=== PATIENT | male | born 1955 | race Caucasian/White ===

== ENCOUNTER → 2017-03-25 | Outpatient (CLI) | payer OTHER ==
[~2017-03-25] MED LIST: ALLP300T PO; CETI10TA17 PO; DABI150C5 PO; ESCT10T; FLT05NA16; FLUT16SP22 NSEACH; FURO40TA4; METO-274 PO; MTF500T PO; MTP100TCR PO; NFNEB10T PO; ROSU10TA12 PO; SITA100T12 PO; TELM1TAB PO; TELM80TA3 PO
--- NOTE | 2017-03-25 12:11 | Diagnostic Imaging Report ---
EXAMINATION: Upper and lower extremity pressure measurements of ankle/brachial index and pulse volume recording at the ankle. INDICATION: Claudication FINDINGS: The ankle/brachial index on the right side is 1.3, (1.3 PT, and 1.1 DP) and on the left is 1.2 (1.2 PT, and 1.2 DP). Pulse volume recording waveforms dampened amplitude with the PVRs at the ankles bilaterally. IMPRESSION: Normal JOELLEN measurements, bilaterally with moderate dampening of the PVR's waveforms. Calcified vessels could exaggerate the ankle pressures. Dictated by: Dictated on workstation # [id number]
== END ==
LOC: RAD 11:15
PROVIDERS: ATTEND Internal Medicine
DX: I73.9 Peripheral vascular disease, unspecified (principal)
CPT/HCPCS: 93922

== ENCOUNTER → 2017-05-21 | Outpatient (CLI) | payer OTHER ==
[~2017-05-21] MED LIST changes: -METO-274 PO; +METO-395 PO
== END ==
LOC: CARD 13:20
PROVIDERS: ATTEND Physician Assistant
DX: E13.9 Other specified diabetes mellitus without complications (principal); I10 Essential (primary) hypertension; E78.2 Mixed hyperlipidemia; I48.1 Persistent atrial fibrillation
CPT/HCPCS: 93306

== ENCOUNTER 2018-09-09 05:40 | Inpatient (IN) | payer SELFPAY ==
[~2018-09-09] VITALS: Ht 193 cm; Wt 137.1 kg
[2018-09-09] VITALS (15 sets, daily range): BP systolic 80–123; BP diastolic 59–99
[~2018-09-09 05:40] MED LIST changes: +ALLO300T2 PO; +DILT240C86 PO; +ESCI20TA45 PO; +FOLI1TAB24 PO; +GABA-488 PO; +METF-397 PO; +METO200T48 PO; +ROSU10TA27 PO; +THIA100T12 PO
[2018-09-09 06:21] LABS: BASOPHILS % (AUTO) 0 % (0-10); EOSINOPHILS # (AUTO) 0.1 10^3/uL (0.0-0.3); EOSINOPHILS % (AUTO) 2 % (0-10); HEMATOCRIT 42 % (40-54); LYMPHOCYTES # (AUTO) 1.5 X 10^3 (1.0-4.0); LYMPHOCYTES % (AUTO) 20 % (12-44); MEAN CORPUSCULAR HEMOGLOBIN 33 PG (25-34); MEAN CORPUSCULAR HGB CONC 33 G/DL (32-36); MEAN CORPUSCULAR VOLUME 100 FL (80-99); MEAN PLATELET VOLUME 10.4 FL (7.4-10.4); MONOCYTES % (AUTO) 13 % (0-12); NEUTROPHILS % (AUTO) 65 % (42-75); PLATELET COUNT 170 10^3/uL (130-400); RED CELL DISTRIBUTION WIDTH 14.5 % (10.0-14.5); WHITE BLOOD COUNT 7.6 10^3/uL (4.3-11.0)
[2018-09-09 06:30] LABS: BACTERIA,URINE TRACE /HPF; BILIRUBIN,URINE NEGATIVE (NEGATIVE); CLARITY,URINE CLEAR; COLOR,URINE YELLOW; GLUCOSE, URINE (UA) NEGATIVE (NEGATIVE); KETONES,URINE NEGATIVE (NEGATIVE); LEUKOCYTE ESTERASE ,URINE 1+ (NEGATIVE); NITRITE,URINE NEGATIVE (NEGATIVE); PH,URINE 5 (5-9); PROTEIN,URINE 2+ (NEGATIVE); RBC,URINE RARE /HPF; SQUAMOUS EPITHELIAL CELL,UR RARE /HPF; UROBILINOGEN,URINE 1 MG/DL (NORMAL); WBC,URINE RARE /HPF
[2018-09-09 06:42] LABS: ALANINE AMINOTRANSFERASE 17 U/L (0-55); ALBUMIN 3.6 GM/DL (3.2-4.5); ALKALINE PHOSPHATASE 150 U/L (40-136); BUN/CREATININE RATIO 14; CALCIUM 9.3 MG/DL (8.5-10.1); CARBON DIOXIDE 19 MMOL/L (21-32); CHLORIDE 107 MMOL/L (98-107); CREATININE SERUM 0.72 MG/DL (0.60-1.30); GFR ESTIMATED > 60; GLUCOSE 135 MG/DL (70-105); POTASSIUM 4.4 MMOL/L (3.6-5.0); SODIUM 138 MMOL/L (135-145); TOTAL PROTEIN 6.7 GM/DL (6.4-8.2)
--- NOTE | 2018-09-09 06:53 | ED General ---
General Chief Complaint: Respiratory Problems Stated Complaint: FEET,LEGS & SCROTUM SWOLLEN,SOB,DIABETES Nursing Triage Note: EDEMA, SOA. Nursing Sepsis Screen: No Definite Risk Source of Information: Patient Exam Limitations: No Limitations History of Present Illness Date Seen by Provider: Sep 09, 2018 Time Seen by Provider: 06:40 Initial Comments The patient is a 63-year-old white male who appears at the insistence of his . He states that he has gained 60 or 65 pounds over the recent weeks. He is very short of breath. His belly has gotten much larger and his legs have swollen terribly. He also reports that his penis and scrotum have become greatly swollen. He has had atrial fibrillation for 10 years or more. He states that he had a coronary angiogram about 5 [address] Campos at this institution. He has no previous history of a heart attack. He only gave in to his because he was no longer able to get up and walk because of the swelling. He also apparently has not taken his medicines for 6 weeks or more because he was unable to afford them. Allergies and Home Medications Allergies Coded Allergies: Devaughn Known Allergies (Verified Allergy, Unknown, 07/17/06) Home Medications Allopurinol 300 Mg Tablet, 300 MG PO DAILY, (Reported) Cetirizine HCl 10 Mg Tablet, 10 MG PO DAILY, (Reported) Dabigatran Etexilate Mesylate 150 Mg Capsule, 150 MG PO 0900,1200, (Reported) Diltiazem HCl 240 Mg Cap.er.24h, 240 MG PO DAILY, (Reported) Escitalopram Oxalate 20 Mg Tablet, 20 MG PO HS, (Reported) Folic Acid 1 Mg Tablet, 1 MG PO DAILY Prescribed by: DENNIS CAMPOS on 10/13/17837 Gabapentin 300 Mg Capsule, 300 MG PO HS, (Reported) Metformin HCl 500 Mg Tablet, 1,000 MG PO 0900,1200, (Reported) Metoprolol Succinate 200 Mg Tab.er.24h, 200 MG PO DAILY, (Reported) Rosuvastatin Calcium 10 Mg Tablet, 10 MG PO HS, (Reported) Sitagliptin Phosphate 100 Mg Tablet, 100 MG PO DAILY, (Reported) Telmisartan/Hydrochlorothiazid 1 Each Tablet, 1 TAB PO DAILY, (Reported) Thiamine HCl 100 Mg Tablet, 100 MG PO DAILY Prescribed by: DENNIS CAMPOS on 10/13/17837 Patient Home Medication List Home Medication List Reviewed: Yes Review of Systems Review of Systems Constitutional: see HPI Respiratory: dyspnea on exertion, orthopnea, short of breath Cardiovascular: no symptoms reported Gastrointestinal: other (the belly has become very tight and he has which were not present before) Musculoskeletal: muscle weakness Skin: other (feet have become very swollen and flaky) Psychiatric/Neurological: No Symptoms Reported Hematologic/Lymphatic: No Symptoms Reported Immunological/Allergic: no symptoms reported Past Qgflltu-[id number]-[id number] Hx Patient Social History Alcohol Use: Regular Use Number of Drinks Today: GG Alcohol Beverage of Choice: Whiskey Recreational Drug Use: No Smoking Status: Current Everyday Smoker Type Used: Cigarettes 2nd Hand Smoke Exposure: Yes Recent Foreign Travel: No Contact w/Someone Who Travel: No Recent Infectious Disease Expo: No Recent Hopitalizations: No Immunizations Up To Date Tetanus Booster (TDap): Unknown Seasonal Allergies Seasonal Allergies: No Past Medical History Surgeries: Yes Orthopedic Respiratory: Yes Sleep Apnea Cardiac: Yes Atrial Fibrillation, High Cholesterol, Hypertension Neurological: Yes Neuropathy Genitourinary: No Gastrointestinal: No Musculoskeletal: Yes Arthritis Endocrine: Yes Diabetes, Non-Insulin dep HEENT: Yes Hearing Impairment: Hard of Hearing Cancer: No Psychosocial: Yes Anxiety, Depression Integumentary: No Blood Disorders: No Physical Exam Vital Signs Vital Signs - First Documented 09/09/18 05:50 Temp 96.9 Pulse 136 Resp 22 B/P (MAP) 126/91 (103) Pulse Ox 98 O2 Delivery Room Air Capillary Refill : Less Than 3 Seconds Height, Weight, BMI Height: 6'4.00" Weight: 340lbs. 0oz. [id number]; 33.7 BMI Method:Stated General Appearance: Moderate Distress Eyes: Bilateral Eye Normal Inspection HEENT: Normal ENT Inspection Neck: Normal Inspection Respiratory: Other (barreled chest and distant breath sounds) Cardiovascular: Irregularly Irregular, Tachycardia Gastrointestinal: Other (the abdomen is very large and protuberant. There are new stria in the right mid abdomen. There is a fluid wave) Neurologic/Psychiatric: Alert, Oriented x3 Comments The extremities are very swollen and firm well up into the thighs. The penis and scrotum are also very edematous. It is also noted that he has multiple small holes in his T-shirt and pants consistent with tobacco YUSEF Progress/Results/Core Measures Suspected Sepsis Recent Fever Within 48 Hours: No Infection Criteria Present: None New/Unexplained Altered Menta: No Sepsis Screen: No Definite Risk SIRS Temperature:96.9 Pulse: 136 Respiratory Rate: 22 Laboratory Tests 09/09/18 06:05: White Blood Count 7.6 Blood Pressure 126 /91 Mean: 103 Laboratory Tests 09/09/18 06:05: Creatinine 0.72, Platelet Count 170, Total Bilirubin 1.0 Results/Orders Lab Results Laboratory Tests Test 09/09/18 06:00 09/09/18 06:05 Range/Units Urine Color YELLOW Urine Clarity CLEAR Urine pH 5 5-9 Urine Specific [place] 1.020 1.016-1.022 Urine Protein 2+ H NEGATIVE Urine Glucose (UA) NEGATIVE NEGATIVE Urine Ketones NEGATIVE NEGATIVE Urine Nitrite NEGATIVE NEGATIVE Urine Bilirubin NEGATIVE NEGATIVE Urine Urobilinogen 1 NORMAL MG/DL Urine Leukocyte Esterase 1+ H NEGATIVE Urine RBC (Auto) NEGATIVE NEGATIVE Urine RBC RARE /HPF Urine WBC RARE /HPF Urine Squamous Epithelial Cells RARE /HPF Urine Crystals NONE /LPF Urine Bacteria TRACE /HPF Urine Casts NONE /LPF Urine Mucus NEGATIVE /LPF Urine Culture Indicated NO White Blood Count 7.6 4.3-11.0 10^3/uL Red Blood Count 4.19 L 4.35-5.85 10^6/uL Hemoglobin 14.0 13.3-17.7 G/DL Hematocrit 42 40-54 % Mean Corpuscular Volume 100 H 80-99 FL Mean Corpuscular Hemoglobin 33 25-34 PG Mean Corpuscular Hemoglobin Concent 33 32-36 G/DL Red Cell Distribution Width 14.5 10.0-14.5 % Platelet Count 170 130-400 10^3/uL Mean Platelet Volume 10.4 7.4-10.4 FL Neutrophils (%) (Auto) 65 42-75 % Lymphocytes (%) (Auto) 20 12-44 % Monocytes (%) (Auto) 13 H 0-12 % Eosinophils (%) (Auto) 2 0-10 % Basophils (%) (Auto) 0 0-10 % Neutrophils # (Auto) 5.0 1.8-7.8 X 10^3 Lymphocytes # (Auto) 1.5 1.0-4.0 X 10^3 Monocytes # (Auto) 1.0 0.0-1.0 X 10^3 Eosinophils # (Auto) 0.1 0.0-0.3 10^3/uL Basophils # (Auto) 0.0 0.0-0.1 10^3/uL Sodium Level 138 135-145 MMOL/L Potassium Level 4.4 3.6-5.0 MMOL/L Chloride Level 107 98-107 MMOL/L Carbon Dioxide Level 19 L 21-32 MMOL/L Anion Gap 12 5-14 MMOL/L Blood Urea Nitrogen 10 7-18 MG/DL Creatinine 0.72 0.60-1.30 MG/DL Estimat Glomerular Filtration Rate > 60 BUN/Creatinine Ratio 14 Glucose Level 135 H 70-105 MG/DL Calcium Level 9.3 8.5-10.1 MG/DL Corrected Calcium 9.6 8.5-10.1 MG/DL Total Bilirubin 1.0 0.1-1.0 MG/DL Aspartate Amino Transf (AST/SGOT) 23 5-34 U/L Alanine Aminotransferase (ALT/SGPT) 17 0-55 U/L Alkaline Phosphatase 150 H 40-136 U/L B-Type Natriuretic Peptide 162.9 H <100.0 PG/ML Total Protein 6.7 6.4-8.2 GM/DL Albumin 3.6 3.2-4.5 GM/DL My Orders Orders - JEEVAN MARTIN MD Ekg Tracing (09/09/18 06:21) Chest 1 View, Ap/Pa Only (09/09/18 06:42) Vital Signs/I&O 09/09/18 05:50 Temp 96.9 Pulse 136 Resp 22 B/P (MAP) 126/91 (103) Pulse Ox 98 O2 Delivery Room Air Capillary Refill : Less Than 3 Seconds Blood Pressure Mean: 103 Departure Communication (Admissions) Interestingly his CMP is basically normal including the liver enzymes and blood sugar. His BNP is surprisingly low. Chest x-ray shows no evidence of congestive heart failure. Albumin was noted to be 3.5. Impression Primary Impression: Anasarca Additional Impression: atrial fibrillation with rapid ventricular response Disposition: ADMITTED INPATIENT Condition: Stable/Unchanged Admissions Decision to Admit Reason: Admit from ER (General) Time/Decision to Admit Time: 08:32 Departure-Patient Inst. Referrals: NO,LOCAL PHYSICIAN (PCP/Family) Primary Care Physician JEEVAN MARTIN MD Sep 09, 2018 06:53
--- NOTE | 2018-09-09 07:16 | Diagnostic Imaging Report ---
INDICATION: Shortness of air. Cough. COMPARISON: 12/05/2015 FINDINGS: Single frontal radiographic view of the chest was obtained and demonstrates persistent marked cardiomegaly. Pulmonary vasculature however is within normal limits. Lungs are clear. There is no focal consolidation, large effusion, nor pneumothorax. Bony structures show no gross acute abnormalities. IMPRESSION: 1. Stable cardiomegaly, but no evidence of failure or focal infiltrate. Dictated by: Dictated on workstation # [id number]
--- OUTSIDE RECORDS SUMMARY | 2018-09-09 07:55 | XMS REPORT | Continuity of Care Document ---
Author Author [facility] Organization [facility] Address Unknown Phone Unavailable Allergies Active Description Code Type Severity Reaction Onset Reported/Identified Relationship to Patient Clinical Status Yes NKANo Known Allergies NKA Miscellaneous Allergy Unknown N/A 07/17/2006 Medications There is no data. Problems Date Dx Coded Attending Type Code Diagnosis Diagnosed By 11/27/2011 Ot 427.31 ATRIAL FIBRILLATION 11/27/2011 Ot 786.05 SHORTNESS OF BREATH 11/12/2014 Ot 429.3 11/12/2014 Ot 729.1 11/12/2014 Ot 780.64 11/12/2014 Ot 786.50 11/12/2014 RAFI DEL REAL APRN Ot 786.2 11/12/2014 Ot 429.3 11/12/2014 Ot 729.1 11/12/2014 Ot 780.64 11/12/2014 Ot 786.50 11/12/2014 RAFI DEL REAL APRN Ot 786.2 10/22/2015 Ot 429.3 CARDIOMEGALY 10/22/2015 Ot 729.1 MYALGIA AND MYOSITIS NOS 10/22/2015 Ot 780.64 CHILLS ( WITHOUT FEVER) 10/22/2015 Ot 786.50 CHEST PAIN NOS 10/22/2015 RAFI DEL REAL APRN Ot 786.2 COUGH 10/25/2015 OCTAVIANO CATES MD Ot R06.00 DYSPNEA, UNSPECIFIED 10/25/2015 OCTAVIANO CATES MD Ot Z72.0 TOBACCO USE 11/07/2015 DENNIS OLIVERA MD Ot E11.9 TYPE 2 DIABETES MELLITUS WITHOUT COMPLIC 11/07/2015 DENNIS OLIVERA MD Ot E78.2 MIXED HYPERLIPIDEMIA 11/07/2015 DENNIS OLIVERA MD Ot I10 ESSENTIAL (PRIMARY) HYPERTENSION 11/07/2015 DENNIS OLIVERA MD Ot I48.1 PERSISTENT ATRIAL FIBRILLATION 11/07/2015 DENNIS OLIVERA MD Ot Z72.0 TOBACCO USE 11/08/2015 JAROD MD, BASHAR J Ot E11.9 TYPE 2 DIABETES MELLITUS WITHOUT COMPLIC 11/08/2015 DENNIS OLIVERA MD Ot E78.2 MIXED HYPERLIPIDEMIA 11/08/2015 DENNIS OLIVERA MD Ot I10 ESSENTIAL (PRIMARY) HYPERTENSION 11/08/2015 DENNIS OLIVERA MD Ot I48.1 PERSISTENT ATRIAL FIBRILLATION 11/08/2015 DENNIS OLIVERA MD Ot Z72.0 TOBACCO USE 11/09/2015 DENNIS OLIVERA MD Ot E11.9 TYPE 2 DIABETES MELLITUS WITHOUT COMPLIC 11/09/2015 DENNIS OLIVERA MD Ot E78.2 MIXED HYPERLIPIDEMIA 11/09/2015 DENNIS OLIVERA MD J Ot I10 ESSENTIAL (PRIMARY) HYPERTENSION 11/09/2015 DENNIS OLIVERA MD Ot I48.1 PERSISTENT ATRIAL FIBRILLATION 11/09/2015 DENNIS OLIVERA MD Ot Z72.0 TOBACCO USE 11/09/2015 DENNIS OLIVERA MD Ot E11.9 TYPE 2 DIABETES MELLITUS WITHOUT COMPLIC 11/09/2015 DENNIS OLIVERA MD Ot E78.2 MIXED HYPERLIPIDEMIA 11/09/2015 DENNIS OLIVERA MD Ot I10 ESSENTIAL (PRIMARY) HYPERTENSION 11/09/2015 DENNIS OLIVERA MD Ot I48.1 PERSISTENT ATRIAL FIBRILLATION 11/09/2015 DENNIS OLIVERA MD Ot Z72.0 TOBACCO USE 11/12/2015 DARRYN BUCHANAN, OCTAVIANO Barker Ot R06.00 DYSPNEA, UNSPECIFIED 11/12/2015 OCTAVIANO CATES MD Ot Z72.0 TOBACCO USE 11/22/2015 DENNIS OLIVERA MD Ot E11.9 TYPE 2 DIABETES MELLITUS WITHOUT COMPLIC 11/22/2015 DENNIS OLIVERA MD Ot E78.2 MIXED HYPERLIPIDEMIA 11/22/2015 DENNIS OLIVERA MD Ot I10 ESSENTIAL (PRIMARY) HYPERTENSION 11/22/2015 DENNIS OLIVERA MD Ot I48.1 PERSISTENT ATRIAL FIBRILLATION 11/22/2015 DENNIS OLIVERA MD Ot Z72.0 TOBACCO USE 11/22/2015 DENNIS OLIVERA MD Ot E11.9 TYPE 2 DIABETES MELLITUS WITHOUT COMPLIC 11/22/2015 DENNIS OLIVERA MD Ot E78.2 MIXED HYPERLIPIDEMIA 11/22/2015 DENNIS OLIVERA MD Ot I10 ESSENTIAL (PRIMARY) HYPERTENSION 11/22/2015 DENNIS OLIVERA MD Ot I48.1 PERSISTENT ATRIAL FIBRILLATION 11/22/2015 DENNIS OLIVERA MD Ot Z72.0 TOBACCO USE 12/05/2015 DENNIS OLIVERA MD Ot E11.9 TYPE 2 DIABETES MELLITUS WITHOUT COMPLIC 12/05/2015 DENNIS OLIVERA MD Ot E66.9 OBESITY, UNSPECIFIED 12/05/2015 DENNIS OLIVERA MD Ot E78.5 HYPERLIPIDEMIA, UNSPECIFIED 12/05/2015 DENNIS OLIVERA MD Ot G47.33 OBSTRUCTIVE SLEEP APNEA (ADULT) (PEDIATR 12/05/2015 DENNIS OLIVERA MD Ot I10 ESSENTIAL (PRIMARY) HYPERTENSION 12/05/2015 DENNIS OLIVERA MD Ot I25.10 ATHSCL HEART DISEASE OF [place] CORONARY 12/05/2015 DENNIS OLIVERA MD Ot I48.0 PAROXYSMAL ATRIAL FIBRILLATION 12/05/2015 DENNIS OLIVERA MD Ot M10.9 GOUT, UNSPECIFIED 12/05/2015 DENNIS OLIVERA MD Ot Z68.36 BODY MASS INDEX (BMI) 36.0-36.9, ADULT 12/05/2015 DENNIS OLIVERA MD Ot Z72.0 TOBACCO USE 12/05/2015 DENNIS OLIVERA MD Ot Z79.899 OTHER RETIREMENT (CURRENT) DRUG THERAPY 01/03/2016 DENNIS OLIVERA MD Ot E11.9 TYPE 2 DIABETES MELLITUS WITHOUT COMPLIC 01/03/2016 DENNIS OLIVERA MD Ot E66.9 OBESITY, UNSPECIFIED 01/03/2016 DENNIS OLIVERA MD Ot E78.5 HYPERLIPIDEMIA, UNSPECIFIED 01/03/2016 DENNIS OLIVERA MD Ot G47.33 OBSTRUCTIVE SLEEP APNEA (ADULT) (PEDIATR 01/03/2016 DENNIS OLIVERA MD Ot I10 ESSENTIAL (PRIMARY) HYPERTENSION 01/03/2016 DENNIS OLIVERA MD Ot I25.10 ATHSCL HEART DISEASE OF [place] CORONARY 01/03/2016 DENNIS OLIVERA MD Ot I48.0 PAROXYSMAL ATRIAL FIBRILLATION 01/03/2016 DENNIS OLIVERA MD Ot M10.9 GOUT, UNSPECIFIED 01/03/2016 DENNIS OLIVERA MD Ot Z68.36 BODY MASS INDEX (BMI) 36.0-36.9, ADULT 01/03/2016 DENNIS OLIVERA MD Ot Z72.0 TOBACCO USE 01/03/2016 DENNIS OLIVERA MD Ot Z79.899 OTHER RETIREMENT (CURRENT) DRUG THERAPY 03/19/2017 OCTAVIANO CATES MD Ot R06.00 DYSPNEA, UNSPECIFIED 03/19/2017 OCTAVIANO CATES MD Ot Z72.0 TOBACCO USE 03/19/2017 DENNIS OLIVERA MD Ot E11.9 TYPE 2 DIABETES MELLITUS WITHOUT COMPLIC 03/19/2017 DENNIS OLIVERA MD Ot E78.2 MIXED HYPERLIPIDEMIA 03/19/2017 DENNIS OLIVERA MD Ot I10 ESSENTIAL (PRIMARY) HYPERTENSION 03/19/2017 DENNIS OLIVERA MD Ot I48.1 PERSISTENT ATRIAL FIBRILLATION 03/19/2017 DENNIS OLIVERA MD Ot Z72.0 TOBACCO USE 03/19/2017 DENNIS OLIVERA MD Ot E11.9 TYPE 2 DIABETES MELLITUS WITHOUT COMPLIC 03/19/2017 DENNIS OLIVERA MD Ot E78.2 MIXED HYPERLIPIDEMIA 03/19/2017 DENNIS OLIVERA MD Ot I10 ESSENTIAL (PRIMARY) HYPERTENSION 03/19/2017 DENNIS OLIVERA MD Ot I48.1 PERSISTENT ATRIAL FIBRILLATION 03/19/2017 DENNIS OLIVERA MD Ot Z72.0 TOBACCO USE 03/26/2017 OCTAVIANO CATES MD Ot I73.9 PERIPHERAL VASCULAR DISEASE, UNSPECIFIED 04/08/2017 OCTAVIANO CATES MD Ot I73.9 PERIPHERAL VASCULAR DISEASE, UNSPECIFIED 06/04/2017 MASSIEL HWANG Ot E13.9 OTHER SPECIFIED DIABETES MELLITUS WITHOU 06/04/2017 MASSIEL HWANG Ot E78.2 MIXED HYPERLIPIDEMIA 06/04/2017 MASSIEL WHANG Ot I10 ESSENTIAL (PRIMARY) HYPERTENSION 06/04/2017 MASSIEL HWANG Ot I48.1 PERSISTENT ATRIAL FIBRILLATION 10/12/2017 OCTAVIANO CATES MD Ot I73.9 PERIPHERAL VASCULAR DISEASE, UNSPECIFIED 10/12/2017 MASISEL HWANG Ot E13.9 OTHER SPECIFIED DIABETES MELLITUS WITHOU 10/12/2017 MASSIEL HWANG Ot E78.2 MIXED HYPERLIPIDEMIA 10/12/2017 MASSIEL HWANG Ot I10 ESSENTIAL (PRIMARY) HYPERTENSION 10/12/2017 MASSIEL HWANG Ot I48.1 PERSISTENT ATRIAL FIBRILLATION 10/13/2017 DENNIS OLIVERA MD Ot E11.9 TYPE 2 DIABETES MELLITUS WITHOUT COMPLIC 10/13/2017 DENNIS OLIVERA MD Ot E66.9 OBESITY, UNSPECIFIED 10/13/2017 DENNIS OLIVERA MD Ot E78.2 MIXED HYPERLIPIDEMIA 10/13/2017 DENNIS OLIVERA MD Ot E78.5 HYPERLIPIDEMIA, UNSPECIFIED 10/13/2017 DENNIS OLIVERA MD Ot F10.20 ALCOHOL DEPENDENCE, UNCOMPLICATED 10/13/2017 DENNIS OLIVERA MD Ot G47.33 OBSTRUCTIVE SLEEP APNEA (ADULT) (PEDIATR 10/13/2017 DENNIS OLIVERA MD Ot G62.9 POLYNEUROPATHY, UNSPECIFIED 10/13/2017 DENNIS OLIVERA MD Ot I10 ESSENTIAL (PRIMARY) HYPERTENSION 10/13/2017 DENNIS OLIVERA MD Ot I25.10 ATHSCL HEART DISEASE OF [place] CORONARY 10/13/2017 DENNIS OLIVERA MD Ot I45.10 UNSPECIFIED RIGHT BUNDLE-BRANCH BLOCK 10/13/2017 DENNIS OLIVERA MD, Ot I48.1 PERSISTENT ATRIAL FIBRILLATION 10/13/2017 DENNIS OLIVERA MD Ot I49.3 VENTRICULAR PREMATURE DEPOLARIZATION 10/13/2017 DENNIS OLIVERA MD, Ot I65.23 OCCLUSION AND STENOSIS OF [place] 10/13/2017 DENNIS OLIVERA MD Ot M10.9 GOUT, UNSPECIFIED 10/13/2017 DENNIS OLIVERA MD Ot Z68.33 BODY MASS INDEX (BMI) 33.0-33.9, ADULT 10/13/2017 DENNIS OLIVERA MD Ot Z79.84 CLASSER (CURRENT) USE OF ORAL HYPOGLYC 10/13/2017 DENNIS OLIVERA MD Ot Z91.19 PATIENT'S NONCOMPLIANCE W OT MEDICAL TR 10/13/2017 DENNIS OLIVERA MD Ot E11.9 TYPE 2 DIABETES MELLITUS WITHOUT COMPLIC 10/13/2017 DENNIS OLIVERA MD Ot E66.9 OBESITY, UNSPECIFIED 10/13/2017 DENNIS OLIVERA MD Ot E78.2 MIXED HYPERLIPIDEMIA 10/13/2017 DENNIS OLIVERA MD Ot E78.5 HYPERLIPIDEMIA, UNSPECIFIED 10/13/2017 DENNIS OLIVERA MD, Ot F10.20 ALCOHOL DEPENDENCE, UNCOMPLICATED 10/13/2017 DENNIS OLIVERA MD, Ot G47.33 OBSTRUCTIVE SLEEP APNEA (ADULT) (PEDIATR 10/13/2017 DENNIS OLIVERA MD, Ot G62.9 POLYNEUROPATHY, UNSPECIFIED 10/13/2017 DENNIS OLIVERA MD Ot I10 ESSENTIAL (PRIMARY) HYPERTENSION 10/13/2017 DENNIS OLIVERA MD, Ot I25.10 ATHSCL HEART DISEASE OF [place] CORONARY 10/13/2017 DENNIS OLIVERA MD, Ot I45.10 UNSPECIFIED RIGHT BUNDLE-BRANCH BLOCK 10/13/2017 DENNIS OLIVERA MD, Ot I48.1 PERSISTENT ATRIAL FIBRILLATION 10/13/2017 DENNIS OLIVERA MD, Ot I49.3 VENTRICULAR PREMATURE DEPOLARIZATION 10/13/2017 DENNIS OLIVERA MD, Ot I65.23 OCCLUSION AND STENOSIS OF [place] 10/13/2017 DENNIS OLIVERA MD, Ot M10.9 GOUT, UNSPECIFIED 10/13/2017 DENNIS OLIVERA MD, Ot Z68.33 BODY MASS INDEX (BMI) 33.0-33.9, ADULT 10/13/2017 DENNIS OLIVERA MD, Ot Z79.84 CLASSER (CURRENT) USE OF ORAL HYPOGLYC 10/13/2017 DENNIS OLIVERA MD, Ot Z91.19 PATIENT'S NONCOMPLIANCE W [facility] MEDICAL TR Procedures There is no data. Results Test Result Range Automated blood complete blood count (hemogram) panel - 10/12/17 16:50 Blood leukocytes automated count (number/volume) 5.7 10*3/uL 4.3-11.0 Blood erythrocytes automated count (number/volume) 3.96 10*6/uL 4.35-5.85 Venous blood hemoglobin measurement (mass/volume) 14.1 g/dL 13.3-17.7 Blood hematocrit (volume fraction) 40 % 40-54 Automated erythrocyte mean corpuscular volume 100 [foz_us] 80-99 Automated erythrocyte mean corpuscular hemoglobin (mass per erythrocyte) 36 pg 25-34 Automated erythrocyte mean corpuscular hemoglobin concentration measurement ( mass/volume) 36 g/dL 32-36 Automated erythrocyte distribution width ratio 13.8 % 10.0-14.5 Automated blood platelet count (count/volume) 106 10*3/uL 130-400 Automated blood platelet mean volume measurement 9.8 [foz_us] 7.4-10.4 PT panel in platelet poor plasma by coagulation assay - 10/12/17 16:50 Prothrombin time (PT) in platelet poor plasma by coagulation assay 14.7 s 12.2-14.7 INR in platelet poor plasma or blood by coagulation assay 1.1 0.8-1.4 Activated partial thromboplastin time (aPTT) in platelet poor plasma bycoagulation assay - 10/12/17 16:50 Activated partial thromboplastin time (aPTT) in platelet poor plasma bycoagulation assay 28 s 24-35 Comprehensive metabolic panel - 10/12/17 16:50 Serum or plasma sodium measurement (moles/volume) 139 mmol/L 135-145 Serum or plasma potassium measurement (moles/volume) 3.8 mmol/L 3.6-5.0 Serum or plasma chloride measurement (moles/volume) 106 mmol/L 98-107 Carbon dioxide 22 mmol/L 21-32 Serum or plasma anion gap determination (moles/volume) 11 mmol/L 5-14 Serum or plasma urea nitrogen measurement (mass/volume) 14 mg/dL 7-18 Serum or plasma creatinine measurement (mass/volume) 0.69 mg/dL 0.60-1.30 Serum or plasma urea nitrogen/creatinine mass ratio 20 NRG Serum or plasma creatinine measurement with calculation of estimated glomerular filtration rate > NRG Serum or plasma glucose measurement (mass/volume) 123 mg/dL 70-105 Serum or plasma calcium measurement (mass/volume) 9.0 mg/dL 8.5-10.1 Serum or plasma total bilirubin measurement (mass/volume) 1.0 mg/dL 0.1-1.0 Serum or plasma alkaline phosphatase measurement (enzymatic activity/volume) 73 U/L 40-136 Serum or plasma aspartate aminotransferase measurement (enzymatic activity/ volume) 46 U/L 5-34 Serum or plasma alanine aminotransferase measurement (enzymatic activity/volume ) 60 U/L 0-55 Serum or plasma protein measurement (mass/volume) 6.3 g/dL 6.4-8.2 Serum or plasma albumin measurement (mass/volume) 3.9 g/dL 3.2-4.5 Serum or plasma lithium measurement (moles/volume) - 10/12/17 16:50 BNP level 193.0 pg/mL <100.0 Serum or plasma troponin i.cardiac measurement (mass/volume) - 10/12/17 16:50 Serum or plasma troponin i.cardiac measurement (mass/volume) < ng/ mL <0.30 THYROID STIMULATING HORMONE - 10/12/17 16:50 THYROID STIMULATING HORMONE 2.52 u[iU]/mL 0.35-4.94 Automated blood complete blood count (hemogram) panel - 10/13/17 03:15 Blood leukocytes automated count (number/volume) 5.5 10*3/uL 4.3-11.0 Blood erythrocytes automated count (number/volume) 3.76 10*6/uL 4.35-5.85 Venous blood hemoglobin measurement (mass/volume) 13.5 g/dL 13.3-17.7 Blood hematocrit (volume fraction) 39 % 40-54 Automated erythrocyte mean corpuscular volume 102 [foz_us] 80-99 Automated erythrocyte mean corpuscular hemoglobin (mass per erythrocyte) 36 pg 25-34 Automated erythrocyte mean corpuscular hemoglobin concentration measurement ( mass/volume) 35 g/dL 32-36 Automated erythrocyte distribution width ratio 14.2 % 10.0-14.5 Automated blood platelet count (count/volume) 105 10*3/uL 130-400 Automated blood platelet mean volume measurement 9.7 [foz_us] 7.4-10.4 Comprehensive metabolic panel - 10/13/17 03:15 Serum or plasma sodium measurement (moles/volume) 139 mmol/L 135-145 Serum or plasma potassium measurement (moles/volume) 3.7 mmol/L 3.6-5.0 Serum or plasma chloride measurement (moles/volume) 106 mmol/L 98-107 Carbon dioxide 22 mmol/L 21-32 Serum or plasma anion gap determination (moles/volume) 11 mmol/L 5-14 Serum or plasma urea nitrogen measurement (mass/volume) 15 mg/dL 7-18 Serum or plasma creatinine measurement (mass/volume) 0.66 mg/dL 0.60-1.30 Serum or plasma urea nitrogen/creatinine mass ratio 23 NRG Serum or plasma creatinine measurement with calculation of estimated glomerular filtration rate > NRG Serum or plasma glucose measurement (mass/volume) 95 mg/dL 70-105 Serum or plasma calcium measurement (mass/volume) 8.9 mg/dL 8.5-10.1 Serum or plasma total bilirubin measurement (mass/volume) 0.8 mg/dL 0.1-1.0 Serum or plasma alkaline phosphatase measurement (enzymatic activity/volume) 65 U/L 40-136 Serum or plasma aspartate aminotransferase measurement (enzymatic activity/ volume) 38 U/L 5-34 Serum or plasma alanine aminotransferase measurement (enzymatic activity/volume ) 50 U/L 0-55 Serum or plasma protein measurement (mass/volume) 6.0 g/dL 6.4-8.2 Serum or plasma albumin measurement (mass/volume) 3.7 g/dL 3.2-4.5 Serum or plasma troponin i.cardiac measurement (mass/volume) - 10/13/17 03:15 Serum or plasma troponin i.cardiac measurement (mass/volume) < ng/ mL <0.30 Lipid 1996 panel - 10/13/17 03:15 Serum or plasma triglyceride measurement (mass/volume) 127 mg/dL <150 Serum or plasma cholesterol measurement (mass/volume) 142 mg/dL < 200 Serum or plasma cholesterol in HDL measurement (mass/volume) 43 mg/ dL 40-60 Cholesterol in LDL [mass/volume] in serum or plasma by direct assay 78 mg/dL 1-129 Serum or plasma cholesterol in VLDL measurement (mass/volume) 25 mg/ dL 5-40 Encounters ACCT No. Visit Date/Time Discharge Status Pt. Type Provider Facility Loc./Unit Complaint [id number] 12/14/2017 13:55:00 12/14/2017 23:59:59 CLS Preadmit OCTAVIANO CATES MD [facility] RAD ABNORMAL LIVER ENZYMES [id number] 10/12/2017 16:00:00 10/13/2017 08:39:00 DIS Inpatient DENNIS OLIVERA MD [facility] ICU AFIB W /RVR [id number] 05/21/2017 13:20:00 05/21/2017 23:59:59 CLS Outpatient MASSIEL HWANG [facility] CARD DIABETES MELLITUS [id number] 03/25/2017 11:15:00 03/25/2017 23:59:59 CLS Outpatient OCTAVIANO CATES MD [facility] RAD RT CLAUDICATION [id number] 12/05/2015 11:48:00 12/05/2015 19:16:00 DIS Outpatient DENNIS OLIVERA MD [facility] CATH ABN STRESS, AF, SOB [id number] 11/07/2015 07:54:00 11/07/2015 23:59:59 CLS Outpatient DENNIS OLIVERA MD [facility] CARD PERSISTENT ATRIAL FIBRILLIATION,HTN, [id number] 11/05/2015 12:39:00 11/05/2015 23:59:59 CLS Outpatient DENNIS OLIVERA MD [facility] CARD PERSISTENT ATRIAL FIBRILLATION,HTN,DIABETES MELLIT [id number] 10/22/2015 07:04:00 10/22/2015 23:59:59 CLS Outpatient OCTAVIANO CATES MD [facility] RT TOBACCOISM,DYSPNEA [id number] 03/21/2013 09:23:00 03/21/2013 23:59:59 CLS Outpatient RAFI DEL REAL APRN [facility] RAD [id number] 11/27/2011 10:46:00 Document Registration [id number] 08/12/2010 11:34:00 Document Registration
--- NOTE | 2018-09-09 08:19 | Pulmonary Consultation ---
History of Present Illness History of Present Illness Date of Consultation 09/09/18 08:13 Time Seen by Provider: 08:13 Date of Admission History of Present Illness 63yo with hx of Afib, CAD, presented to ED secondary to worsening SOB, abdominal distension, and scrotum edema. Pt has not taken his home meds x 6wks secondary to financial reasons. states he has gained 60-65lbs over the last few weeks. Allergies and Home Medications Allergies Coded Allergies: NKANo Known Allergies (Verified Allergy, Unknown, 07/17/06) Home Medications Allopurinol 300 Mg Tablet, 300 MG PO DAILY, (Reported) Bisacodyl 5 Mg Tablet, 10 MG PO BID PRN for CONSTIPATION-4TH LINE, (Reported) Bismuth Subsalicylate 262 Mg/15 Ml Oral.susp, 30 ML PO TID PRN for STOMACH UPSET , (Reported) Cetirizine HCl 10 Mg Tablet, 10 MG PO DAILY, (Reported) Dabigatran Etexilate Mesylate 150 Mg Capsule, 150 MG PO BID, (Reported) LAST FILLED 90 DAYS 09-18-17 Diltiazem HCl 240 Mg Cap.er.24h, 240 MG PO DAILY, (Reported) LAST FILLED #90 18 Fluticasone Propionate 9.9 Ml [place].susp, 2 SPRAY NS DAILY, (Reported) LAST FILLED 18 Metformin HCl 500 Mg Tablet, 1,000 MG PO BID, (Reported) LAST FILLED #360 18 Metoprolol Succinate 200 Mg Tab.er.24h, 200 MG PO DAILY, (Reported) LAST FILLED #90 18 Oxymetazoline HCl 30 Ml [place], 2 SPRAYS NS BID PRN for CONGESTION, (Reported) Rosuvastatin Calcium 10 Mg Tablet, 10 MG PO HS, (Reported) LAST FILLED #90 18 Sitagliptin Phosphate 100 Mg Tablet, 100 MG PO DAILY, (Reported) LAST FILLED #90 18 Telmisartan/Hydrochlorothiazid 1 Each Tablet, 1 TAB PO DAILY, (Reported) LAST FILLED #90 18 Past Iyeymbo-Lyhbap-Ezryik Hx Patient Social History Alcohol Use: Regular Use Number of Drinks Today: GG Alcohol Beverage of Choice: Whiskey Recreational Drug Use: No Smoking Status: Current Everyday Smoker Type Used: Cigarettes 2nd Hand Smoke Exposure: Yes Recent Foreign Travel: No Contact w/Someone Who Travel: No Recent Infectious Disease Expo: No Recent Hopitalizations: No Immunizations Up To Date Tetanus Booster (TDap): Unknown Seasonal Allergies Seasonal Allergies: No Past Medical History Surgeries: Yes Orthopedic Respiratory: Yes Sleep Apnea Cardiac: Yes Atrial Fibrillation, High Cholesterol, Hypertension Neurological: Yes Neuropathy Genitourinary: No Gastrointestinal: No Musculoskeletal: Yes Arthritis Endocrine: Yes Diabetes, Non-Insulin dep HEENT: Yes Hearing Impairment: Hard of Hearing Cancer: No Psychosocial: Yes Anxiety, Depression Integumentary: No Blood Disorders: No Sepsis Event Evaluation Height, Weight, BMI Height: 6'4.00" Weight: 340lbs. 0oz. 154.203559zi; 33.7 BMI Method:Stated Exam Exam Vital Signs Date Time Temp Pulse Resp B/P (MAP) Pulse Ox O2 Delivery O2 Flow Rate FiO2 09/09/18 05:50 96.9 136 22 126/91 (103) 98 Room Air Height & Weight Height: 6'4.00" Weight: 340lbs. 0oz. 154.680167om; 33.7 BMI Method:Stated General Appearance: Moderate Distress HEENT: Normal ENT Inspection Neck: Normal Inspection Respiratory: Other (barreled chest and distant breath sounds) Cardiovascular: Irregularly Irregular, Tachycardia Capillary Refill: Less Than 3 Seconds Neurologic/Psychiatric: Alert, Oriented x3 Results Lab Laboratory Tests 09/09/18 06:05 Assessment/Plan Assessment/Plan worsening dyspnea -Check ABG -- C02 31 -Check Echo BNP is 163 Anasarca -LFTs are WNL -Check US of abdomen -Restart home meds Metabolic acidosis -Check LA Afib RVR -Cardiology is following -Cardizem gtt Alcoholism -Monitor for withdrawals CAD DM Morbid obesity with MARICRUZ -PT was intolerant of CPAP -Will do more education kana as out pt MARKO FAJARDO DO Sep 09, 2018 08:19
[2018-09-09] MEDS ORDERED: DILTIAZEM 25 MG/5 ML INJ (CARDIZEM) VIAL IVP ONE (08:30)
--- NOTE | 2018-09-09 08:41 | Consultation-Cardiology ---
HPI-Cardiology Cardiology Consultation Date of Consultation 09/09/18 Date of Admission Time Seen by Provider: 08:35 Indication: atrial fibrillation HPI 63 years old gentleman with history of chronic persistent atrial fibrillation, he has stopped taking his medication for the past 4 months, has been drinking heavily. Has been having increasing peripheral edema, gained significant weight , denied any fever or chills. No chest pain. No syncope or near syncopal episode, became weak and lethargic. Unable to support his weight. Brought to the emergency room by his . Currently sitting in bed, slightly dyspneic. No chest pain. No palpitation. He is tachycardic. Home Medications & Allergies Allergies: Coded Allergies: NKANo Known Allergies (Verified Allergy, Unknown, 07/17/06) Home Medication List Reviewed: Yes Not taking any medication for the past 4 months YDS-Muyyvy-Qzpisr Hx Patient Social History Marital Status: Employed/Student: unemployed Alcohol Use: Regular Use Recreational Drug Use: No Smoking Status: Current Everyday Smoker Type Used: Cigarettes 2nd Hand Smoke Exposure: Yes Recent Foreign Travel: No Recent Infectious Disease Expo: No Recent Hopitalizations: No Immunizations Up To Date Tetanus Booster (TDap): Unknown Past Medical History Past medical history as described below Family Medical History Family Medical Hx Family history of hypertension, coronary artery disease Review of Systems Constitutional: see HPI, malaise, weakness EENTM: see HPI, no symptoms reported Respiratory: see HPI, dyspnea on exertion, orthopnea, short of breath Cardiovascular: see HPI; No chest pain; edema; No Hx of Intervention; palpitations; No syncope, No vascular heart diseas, No other Gastrointestinal: see HPI, loss of appetite, other (abdominal distention) Genitourinary: no symptoms reported, see HPI Musculoskeletal: see HPI, back pain, joint pain Skin: see HPI, dryness, other (yeast infection in his groin) Psychiatric/Neurological: No Symptoms Reported, See HPI Reviewed Test Results Reviewed Test Results Lab Laboratory Tests Test 09/09/18 06:00 09/09/18 06:05 09/09/18 08:33 Range/Units Urine Color YELLOW Urine Clarity CLEAR Urine pH 5 5-9 Urine Specific [place] 1.020 1.016-1.022 Urine Protein 2+ H NEGATIVE Urine Glucose (UA) NEGATIVE NEGATIVE Urine Ketones NEGATIVE NEGATIVE Urine Nitrite NEGATIVE NEGATIVE Urine Bilirubin NEGATIVE NEGATIVE Urine Urobilinogen 1 NORMAL MG/DL Urine Leukocyte Esterase 1+ H NEGATIVE Urine RBC (Auto) NEGATIVE NEGATIVE Urine RBC RARE /HPF Urine WBC RARE /HPF Urine Squamous Epithelial Cells RARE /HPF Urine Crystals NONE /LPF Urine Bacteria TRACE /HPF Urine Casts NONE /LPF Urine Mucus NEGATIVE /LPF Urine Culture Indicated NO White Blood Count 7.6 4.3-11.0 10^3/uL Red Blood Count 4.19 L 4.35-5.85 10^6/uL Hemoglobin 14.0 13.3-17.7 G/DL Hematocrit 42 40-54 % Mean Corpuscular Volume 100 H 80-99 FL Mean Corpuscular Hemoglobin 33 25-34 PG Mean Corpuscular Hemoglobin Concent 33 32-36 G/DL Red Cell Distribution Width 14.5 10.0-14.5 % Platelet Count 170 130-400 10^3/uL Mean Platelet Volume 10.4 7.4-10.4 FL Neutrophils (%) (Auto) 65 42-75 % Lymphocytes (%) (Auto) 20 12-44 % Monocytes (%) (Auto) 13 H 0-12 % Eosinophils (%) (Auto) 2 0-10 % Basophils (%) (Auto) 0 0-10 % Neutrophils # (Auto) 5.0 1.8-7.8 X 10^3 Lymphocytes # (Auto) 1.5 1.0-4.0 X 10^3 Monocytes # (Auto) 1.0 0.0-1.0 X 10^3 Eosinophils # (Auto) 0.1 0.0-0.3 10^3/uL Basophils # (Auto) 0.0 0.0-0.1 10^3/uL Sodium Level 138 135-145 MMOL/L Potassium Level 4.4 3.6-5.0 MMOL/L Chloride Level 107 98-107 MMOL/L Carbon Dioxide Level 19 L 21-32 MMOL/L Anion Gap 12 5-14 MMOL/L Blood Urea Nitrogen 10 7-18 MG/DL Creatinine 0.72 0.60-1.30 MG/DL Estimat Glomerular Filtration Rate > 60 BUN/Creatinine Ratio 14 Glucose Level 135 H 70-105 MG/DL Calcium Level 9.3 8.5-10.1 MG/DL Corrected Calcium 9.6 8.5-10.1 MG/DL Total Bilirubin 1.0 0.1-1.0 MG/DL Aspartate Amino Transf (AST/SGOT) 23 5-34 U/L Alanine Aminotransferase (ALT/SGPT) 17 0-55 U/L Alkaline Phosphatase 150 H 40-136 U/L B-Type Natriuretic Peptide 162.9 H <100.0 PG/ML Total Protein 6.7 6.4-8.2 GM/DL Albumin 3.6 3.2-4.5 GM/DL Physical Exam Vital Signs Vital Signs - First Documented 09/09/18 05:50 Temp 96.9 Pulse 136 Resp 22 B/P (MAP) 126/91 (103) Pulse Ox 98 O2 Delivery Room Air Capillary Refill : Less Than 3 Seconds Height, Weight, BMI Height: 6'4.00" Weight: 340lbs. 0oz. 154.246444vv; 33.7 BMI Method:Stated General Appearance: WD/WN, Moderate Distress Eyes: Bilateral Eye Normal Inspection, Bilateral Eye PERRL, Bilateral Eye EOMI HEENT: PERRL/EOMI, TMs Normal, Normal ENT Inspection, Pharynx Normal Neck: Full Range of Motion, Normal Inspection, Non Tender, Supple, Carotid Bruit Respiratory: Chest Non Tender, Lungs Clear, Normal Breath Sounds, No Accessory Muscle Use, No Respiratory Distress Cardiovascular: No Edema, No Gallop, No JVD, Normal Peripheral Pulses, Irregularly Irregular, Tachycardia Gastrointestinal: Normal Bowel Sounds, No Organomegaly, No Pulsatile Mass, Non Tender, Soft, Distended Back: Normal Inspection, No CVA Tenderness, No Vertebral Tenderness Extremity: Normal Capillary Refill, Normal Inspection, Normal Range of Motion, Non Tender, No Calf Tenderness, Pedal Edema (peripheral edema) Neurologic/Psychiatric: Alert, Oriented x3, No Motor/Sensory Deficits, Normal Mood/Affect Skin: Normal Color, Warm/Dry Lymphatic: No Adenopathy A/P-Cardiology Admission Diagnosis Acute atrial fibrillation with rapid ventricular response Anasarca Hypertension Alcoholism Assessment/Plan Acute on chronic atrial fibrillation, currently tachycardic, chronic persistent atrial fibrillation, noncompliant with medication. Started on Cardizem drip, I will add beta blockers and start on Lovenox to reduce the risk of stroke. Anasarca, extensive peripheral and abdominal edema. Good be secondary to atrial fibrillation, BNP is not significantly elevated, patient has history of heavy alcoholism, it could be secondary to liver failure. Albumin level is normal, I will evaluate CT of the abdomen and pelvis. Start on aggressive diuresis and monitor tolerance and response. Generalized weakness and loss of energy, significant weight gain secondary to anasarca Dyspnea. Worsening recently. Coronary artery disease mild nonobstructive disease by cardiac catheterization in 2016. Continue to monitor Hypertension, evaluate blood pressure tolerance to his current medication Hyperlipidemia, not taking any medication, monitor lipid, hold off on statin due to the heavy alcoholism Diabetes mellitus, followed and managed by Dr. Moreno Obesity, gained over 30 pounds recently with significant fluid retention. Discussed compliance with medication Obstructive sleep apnea, deviated septum, could not tolerate C Pap in the past, had [address] Mcelroy, managed by primary care physician. Arthritis, gouty arthritis. Managed by Dr. Moreno Heavy alcoholism, we had a long discussion about avoiding alcohol and compliance with medication.ed limiting alcohol Mild bilateral carotid stenosis, last ultrasound was done on May 25, 2017 , continue to monitor Peripheral neuropathy, having difficulty functioning. Working on disability Noncompliance with medication, educated in length about compliance DENNIS OLIVERA MD Sep 09, 2018 08:41
--- NOTE | 2018-09-09 08:45 | NUR ---
ANNIKA MENDEZ admitted to room CU11-1, with an admitting diagnosis of afib with RVR, on 09/09/[address] via wheelchair, accompanied by staff.ANNIKA MENDEZ introduced to surroundings, call light, bed controls, phone, TV, temperature control, lights, meal times, smoking policy, visitor policy, side rail policy, bathrooms and showers. Patient Rights given to patient in the handbook. ANNIKA MENDEZ verbalizes understanding that [facility] is not responsible for the loss or damage to any personal effects or valuables that are kept in the patients posession during their hospitalization. The following Patient Care Plans were discussed with the pt: Discharge Planning. ANNIKA MENDEZ verbalizes understanding of Interdisciplinary Patient Education. Patient and/or family were informed about the Rapid Response Team and its purpose.
[2018-09-09 08:48] LABS: ABG BASE EXCESS -3.9 MMOL/L (-2.5-2.5); ABG OXYGEN SATURATION 98 % (94-100); ABG PCO2 31 MMHG (35-45); ABG PH 7.42 (7.37-7.43); ABG PO2 94 MMHG (79-93)
[2018-09-09 08:49] LABS: ALLENS TEST YES-POS; INSPIRED O2 1L; PATIENT TEMP 96.9; VENTILATOR NO
[2018-09-09] MEDS: DILTIAZEM INJECTION 125 MG in NS (IVPB) 100 ML IV SCH ×2 (09:15→17:52)
[2018-09-09] MEDS ORDERED: 1/2 NS IV SOLUTION 1,000 ML IV PRN (09:59)
--- NOTE | 2018-09-09 09:59 | History & Physical-Hospitalist ---
History of Present Illness HPI/Chief Complaint Chief complaint: Swelling HPI: This is a 63yoWM that previously saw Dr. Hyatt and then Dr. Moreno but had not seen anyone because he did not have insurance and was fighting with disability of [facility] [employer], who continues to smoke and drinks alcohol a great deal who presented to the ER with Anasarca. Scrotal edema is causing pain. He reports feeling a little better since admission, Pt has been given Lasix and cardiology and pulmonology consult also. BNP is just slightly elevated at 165, echocardiogram will be obtained and Dr. Campos will evaluate. I will place him on alcohol withdrawal protocol. Pt's sister and ex- are at the bedside. I will evaluate any other needs he has and he will likely go back to Dr. Hyatt at [facility] at time of discharge. He does have Venous stasis changes of his lower extremities. Source: patient, family Exam Limitations: no limitations Date Seen 09/09/18 Time Seen by a Provider: 09:15 Attending Physician Lilly Wynn DO PCP No,Local Physician Referring Physician Date of Admission Sep 09, 2018 at 07:49 Home Medications & Allergies Home Medications Reviewed patient Home Medication Reconciliation performed by pharmacy medication reconciliations mechanical design technician and/or nursing. Patients Allergies have been reviewed. Allergies Allergies Coded Allergies NKANo Known Allergies (Verified Allergy, Unknown, 07/17/06) Past Kqbzyvw-Epkvdh-Cbgyey Hx Past Med/Social Hx: Reviewed Nursing Past Med/Soc Hx, Reviewed and Corrections made Patient Social History Marrital Status: Employed/Student: unemployed Alcohol Use: Regular Use Number of Drinks Today: GG Alcohol Beverage of Choice: Whiskey Recreational Drug Use: No Smoking Status: Current Everyday Smoker Type Used: Cigarettes 2nd Hand Smoke Exposure: Yes Recent Foreign Travel: No Contact w/other who traveled: No Recent Hopitalizations: No Recent Infectious Disease Expo: No Immunizations Up To Date Tetanus Booster (TDap): Unknown Seasonal Allergies Seasonal Allergies: No Past Medical History Surgeries: Orthopedic Respiratory: Sleep Apnea Cardiac: Atrial Fibrillation, High Cholesterol, Hypertension Neurological: Neuropathy Musculoskeletal: Arthritis Endocrine: Diabetes, Non-Insulin dep Hearing Impairment: Hard of Hearing Psychosocial: Anxiety, Depression History of Blood Disorders: No Review of Systems Constitutional: see HPI, weakness EENTM: no symptoms reported Respiratory: dyspnea on exertion Cardiovascular: edema Gastrointestinal: no symptoms reported Genitourinary: no symptoms reported Musculoskeletal: no symptoms reported Skin: no symptoms reported Psychiatric/Neurological: No Symptoms Reported All Other Systems Reviewed Negative Unless Noted: Yes Physical Exam Physical Exam Vital Signs Vital Signs - First Documented 09/09/18 05:50 Temp 96.9 Pulse 136 Resp 22 B/P (MAP) 126/91 (103) Pulse Ox 98 O2 Delivery Room Air Capillary Refill : Less Than 3 Seconds Height, Weight, BMI Height: 6'4.00" Weight: 340lbs. 0oz. 154.413906vx; 33.7 BMI Method:Stated General Appearance: No Apparent Distress, WD/WN, Chronically ill, Obese Eyes: Right Eye Normal Inspection, Right Eye PERRL HEENT: PERRL/EOMI, Normal ENT Inspection, Pharynx Normal, Moist Mucous Membranes Neck: Full Range of Motion, Normal Inspection, Non Tender Respiratory: Chest Non Tender, Normal Breath Sounds, No Accessory Muscle Use, No Respiratory Distress, Decreased Breath Sounds Cardiovascular: Regular Rate, Rhythm, No Gallop, No JVD, No Murmur, Normal Peripheral Pulses Gastrointestinal: Normal Bowel Sounds, No Organomegaly, No Pulsatile Mass, Non Tender, Soft Back: Normal Inspection, No CVA Tenderness, No Vertebral Tenderness Extremity: Normal Capillary Refill, Normal Inspection, Normal Range of Motion, Non Tender, No Calf Tenderness, Pedal Edema (anasarca) Neurologic/Psychiatric: Alert, Oriented x3, No Motor/Sensory Deficits, Normal Mood/Affect Skin: Normal Color, Warm/Dry Lymphatic: No Adenopathy Results Results/Procedures Labs Laboratory Tests 09/09/18 06:05 Patient resulted labs reviewed. Assessment/Plan Admission Diagnosis Assessment: Anasarca AF Obesity Severe debility ETOHism Plan: ETOH withdrawal protocol Lasix Cardiology and Pulmonology evaluations are appreciated Admission Status: Inpatient Order (span 2 midnights) Reason for Inpatient Admission: Alcohol withdrawal with AF and anasarca will require 3 days Diagnosis/Problems Diagnosis/Problems (1) Anasarca Status: Acute (2) ETOH abuse Status: Chronic (3) A-fib Status: Acute LILLY WYNN DO Sep 09, 2018 09:59
[2018-09-09] MEDS ORDERED: D5 1/2 NS 1000 ML IV SOLUTION 1,000 ML IV PRN (10:00)
[2018-09-09] MEDS ORDERED: DOCUSATE SODIUM 100 MG (COLACE) CAP PO PRN (10:00)
[2018-09-09] MEDS ORDERED: CATHETER FLUSH 10 ML SYR IV PRN (10:00)
[2018-09-09] MEDS ORDERED: diphenhydrAMINE 25 MG TAB (BENADRYL) PO PRN (10:00)
[2018-09-09] MEDS ORDERED: fentaNYL INJECTION 100 MCG/2 ML AMP IVP PRN (10:00)
[2018-09-09] MEDS ORDERED: ONDANSETRON 4 MG (ZOFRAN) ORAL DISSOLVE TAB SL PRN (10:00)
[2018-09-09] MEDS ORDERED: ONDANSETRON 4 MG/2 ML (SDV) Z0FRAN IV PRN (10:00)
[2018-09-09] MEDS ORDERED: LORazepam 1 MG (ATIVAN) TAB PO PRN (10:00)
[2018-09-09] MEDS ORDERED: CALCIUM CARBONATE 500 MG (TUMS) TAB.CHEW PO PRN (10:00)
[2018-09-09] MEDS ORDERED: ONDANSETRON 4 MG/2 ML (SDV) Z0FRAN IVP PRN (10:00)
[2018-09-09] MEDS ORDERED: ONDANSETRON 4 MG (ZOFRAN) ORAL DISSOLVE TAB PO PRN (10:00)
[2018-09-09] MEDS ORDERED: LORazepam INJ 2 MG/ML (ATIVAN) VIAL IV PRN (10:00)
[2018-09-09] MEDS ORDERED: LORazepam INJ 2 MG/ML (ATIVAN) VIAL IM/IV PRN (10:00)
[2018-09-09] MEDS ORDERED: ANTACID SUSP 30 ML UDC (MYLANTA) PO PRN (10:00)
[2018-09-09] MEDS ORDERED: ACETAMINOPHEN 500 MG TAB (TYLENOL) PO PRN (10:00)
--- NOTE | 2018-09-09 10:27 | Diagnostic Imaging Report ---
PROCEDURE: CT abdomen and pelvis without contrast. TECHNIQUE: Multiple contiguous axial images were obtained through the abdomen and pelvis without the use of intravenous contrast. Auto Exposure Controls were utilized during the CT exam to meet ALARA standards for radiation dose reduction. COMPARISON: I have no previous for comparison. INDICATION: Abdominal distention. FINDINGS: There are third spaced fluids present. There are very small bilateral pleural effusions. There is substantial diffuse integumentary and subcutaneous edema. There is a small to moderate volume of abdominal and small volume pelvic free fluid as well as some generalized mesenteric edema. Findings of scrotal edema and likely hydroceles. There was however no loculated fluid collection or evidence for abscess no CT complexity of the fluid was found. Multiple stones within the appendiceal lumen but no secondary findings of acute appendicitis. The appendix is nondilated and its lumen contained air proximally and distally. The unopacified urinary bladder unremarkable. There are no opaque kidney stones. The spleen is within normal limits of size and appeared nonfocal. The liver, gallbladder and bile ducts unremarkable. The aortoiliac vessels atherosclerotic but nonaneurysmal. There is no pneumatosis or free gas. Some mild adenopathy nonspecific in the bilateral inguinal canals present. There is no abdominal pelvic mesenteric or retroperitoneal adenopathy. IMPRESSION: 1. Third spaced fluids reflect the primary abnormality with no loculated collection identified. 2. Appendicoliths without findings of appendicitis. 3. No bowel, biliary or urinary tract obstruction. Dictated by: Dictated on workstation # [id number]
[2018-09-09] MEDS ORDERED: LIDOCAINE UROJET 2% GEL 10 ML PKG ONE (10:34)
[2018-09-09] MEDS: ENOXAPARIN 300 MG/3 ML (LOVENOX) MULTI-DOSE VIAL SQ SCH ×2 (10:56→21:52)
[2018-09-09] MEDS ORDERED: FLU QUADRIvalent (5+ YOA) 2018-2019 (AFLURIA) 0.5 ML IM ONE (11:00)
[2018-09-09] MEDS ORDERED: BISM262O27 PO (11:20)
[2018-09-09] MEDS ORDERED: INDO50CA11 PO (11:20)
[2018-09-09] MEDS ORDERED: FLUT9.9S NS (11:20)
[2018-09-09] MEDS ORDERED: OXYM30SP NS (11:20)
[2018-09-09] MEDS ORDERED: BISA5TAB49 PO (11:20)
[2018-09-09] MEDS ORDERED: FUROSEMIDE 40 MG/4 ML INJ (LASIX) IVP SCH ×2 (11:30→17:00)
--- NOTE | 2018-09-09 11:59 | NUR ---
PATIENT STATES HE HAS NOT TAKEN HIS MEDICATIONS FOR SOME TIME DUE TO FINANCIAL REASONS. HE HAS A LIST OF MEDICATIONS HE WAS TAKING PRIOR TO THIS. I LISTED THEM ON THE MED REC AND NOTED THE LAST FILL DATES BEST I COULD, [facility] IS WHERE HE WAS GETTING MOST OF THEM FILLED LAST YEAR HOWEVER WHEN I CALLED THEM I SPOKE WITH TWO DIFFERENT REPRESENTATIVES AND EACH GAVE CONFLICTING INFORMATION ON FILL DATES. IT IS UNCLEAR WHAT IS ACCURATE BUT WE KNOW THE PATIENT HAS NOT BEEN TAKING THEM FOR AWHILE. THE LIST HE HAS WITH HIS OF WHAT HE USED TO TAKE IS FOLLOWS: MICARDIS HCT 80-25 DAILY (APPEARS TO HAVE BEEN FILLED LAST BY [facility] 12-26-17 #90) ALLOPURINOL 300MG DAILY (STATED TODAY AND IN JUN HOWEVER 2ND REP STATES NOTHING ON FILE) CRESTOR 10MG DAILY (01-05-18 #90) INDOMETHACIN 50MG (NOT ON FILE AT [facility] OR [facility], PATIENT STATES ONLY USED FOR FLARE UP) PRADAXA 150MG BID (LAST FILLED 90 DAYS 09-18-17 REPORTEDLY) ZYRTEC 10MG (MAY HAVE BEEN OTC) JANUVIA 100MG DAILY (LAST FILLED 01-05-18 #90) METOPROLOL ER 200MG DAILY (LAST FILLED 12-28-17 #90) FLONASE NASAL SPRAY (LAST FILLED BY [facility] 12-28-17) GABAPENTIN 300 DAILY (LAST FILLED 12-09-17 #21 [facility], STOPPED THIS BEFORE UNABLE TO AFFORD) DILTIAZEM CD 240MG DAILY (LAST FILLED 12-28-17 #90) FOLIC ACID 1MG DAILY #30 (LAST FILLED [facility] 12-09-17, STATES HE STOPPED BEFORE HE WAS UNABLE TO AFFORD) METFORMIN 500MG 2 BID (LAST FILLED #360 12-28-17) HE STATES HE USES THE FOLLOWING OTC: LAXATIVE 2 BID PRN PEPTO PRN AFRIN PRN
--- NOTE | 2018-09-09 14:49 | NUR ---
CM/SS spoke with the patient in regards to SS Consult. Patient and his daughter (Douglas) were in the room. Patient has not taken his meds in some time due to financial reasons. He has just gotten his disability checks started after 2yrs waiting through [facility]. He stated that they are supposed to provide insurance but there is some debate between them and other insurance as to who will be covering him, so, currently he has no insurance. Encouraged to fill out application for Financial Assistance with the hospital. Discussed also that he has thought to establish with [facility] for prescription assistance and their programs there. Will continue to follow and as discharge gets closer will coordinate with pharmacy to see how we can help with prescription assistance.
[2018-09-09] MEDS: HYDROcodone/APAP 5 MG/325 MG (LORTAB) TAB PO PRN ×2 (16:11→20:49)
[2018-09-09] MEDS: MELATONIN 3 MG TABLET PO PRN (20:48)
[2018-09-09] MEDS: FLUTICASONE NASAL SPRAY (FLONASE) 16 GM BTL NS SCH (20:49)
[2018-09-10] VITALS (31 sets, daily range): BP systolic 70–135; BP diastolic 36–104
[2018-09-10] MEDS: DILTIAZEM INJECTION 125 MG in NS (IVPB) 100 ML IV SCH ×2 (01:39→09:41)
[2018-09-10 03:50] LABS: BASOPHILS % (AUTO) 0 % (0-10); EOSINOPHILS # (AUTO) 0.1 10^3/uL (0.0-0.3); EOSINOPHILS % (AUTO) 1 % (0-10); HEMATOCRIT 41 % (40-54); HEMOGLOBIN 13.5 G/DL (13.3-17.7); LYMPHOCYTES # (AUTO) 1.5 X 10^3 (1.0-4.0); LYMPHOCYTES % (AUTO) 21 % (12-44); MEAN CORPUSCULAR HEMOGLOBIN 33 PG (25-34); MEAN CORPUSCULAR HGB CONC 33 G/DL (32-36); MEAN CORPUSCULAR VOLUME 101 FL (80-99); MEAN PLATELET VOLUME 10.5 FL (7.4-10.4); MONOCYTES # (AUTO) 1.1 X 10^3 (0.0-1.0); MONOCYTES % (AUTO) 16 % (0-12); NEUTROPHILS # (AUTO) 4.2 X 10^3 (1.8-7.8); NEUTROPHILS % (AUTO) 61 % (42-75); PLATELET COUNT 165 10^3/uL (130-400); RED CELL DISTRIBUTION WIDTH 14.9 % (10.0-14.5); WHITE BLOOD COUNT 6.9 10^3/uL (4.3-11.0)
[2018-09-10 04:19] LABS: BUN/CREATININE RATIO 16; CALCIUM 9.1 MG/DL (8.5-10.1); CARBON DIOXIDE 20 MMOL/L (21-32); CHLORIDE 107 MMOL/L (98-107); CREATININE SERUM 0.74 MG/DL (0.60-1.30); GFR ESTIMATED > 60; GLUCOSE 119 MG/DL (70-105); MAGNESIUM 1.1 MG/DL (1.8-2.4); PHOSPHORUS 3.9 MG/DL (2.3-4.7); POTASSIUM 4.1 MMOL/L (3.6-5.0); SODIUM 138 MMOL/L (135-145)
[2018-09-10] MEDS: MAGNESIUM 1 GM/100 ML IVPB 100 ML IV SCH ×4 (04:45→06:56)
[2018-09-10] MEDS ORDERED: KCL 20 MEQ TAB (K-DUR) PO SCH (06:00)
[2018-09-10] MEDS ORDERED: POTASSIUM CL 10MEQ/50ML IVPB 50 ML IV SCH (06:00)
--- NOTE | 2018-09-10 06:51 | Diagnostic Imaging Report ---
Indication: Shortness of breath Portable chest 4:02 AM There is cardiomegaly. Pulmonary vascularity is normal. Lungs are clear. There are no effusions or pneumothoraces. Impression: Stable cardiomegaly without evidence of pulmonary venous hypertension. Dictated by: Dictated on workstation # [id number]
--- NOTE | 2018-09-10 07:06 | Pulmonary Progress Note ---
Subjective Time Seen by a Provider: 07:06 Subjective/Events-last exam Still on Cardizem gtt. Sepsis Event Evaluation Height, Weight, BMI Height: 6'4.00" Weight: 340lbs. 0.0oz. 154.113130mm; 41.4 BMI Method:Stated Exam Exam Vital Signs Date Time Temp Pulse Resp B/P (MAP) Pulse Ox O2 Delivery O2 Flow Rate FiO2 09/10/18 06:00 98 14 107/85 (92) 98 Room Air 09/10/18 05:15 89 15 105/81 (89) 97 Room Air 09/10/18 04:00 97 Room Air 09/10/18 04:00 94 103/88 (93) 96 Room Air 09/10/18 04:00 98.2 09/10/18 03:00 93 101/77 (85) 97 Room Air 09/10/18 02:00 90 102/79 (87) 94 Room Air 09/10/18 01:01 101 09/10/18 01:00 101 27 116/82 (93) 96 Room Air 09/10/18 00:00 97 Room Air 09/10/18 00:00 86 19 110/73 (85) 94 Room Air 09/10/18 00:00 98.4 09/09/18 23:00 101 29 111/86 (94) 96 Room Air 09/09/18 22:00 97 20 90/78 (82) 95 Room Air 09/09/18 21:00 105 17 123/85 (98) 97 Room Air 09/09/18 20:00 96 Room Air 09/09/18 20:00 105 11 108/76 (87) 97 Room Air 09/09/18 20:00 97.4 09/09/18 19:00 102 20 116/78 (91) 98 Room Air 09/09/18 19:00 102 09/09/18 18:00 96 18 99/80 (86) 98 Room Air 09/09/18 17:00 101 11 107/77 (87) 97 Room Air 09/09/18 16:00 103 18 80/59 (66) 96 Room Air 09/09/18 15:59 99 Room Air 09/09/18 15:00 103 18 104/88 (93) 97 Room Air 09/09/18 14:00 102 24 113/84 (94) 97 Room Air 09/09/18 13:00 106 19 113/71 (85) 97 Room Air 09/09/18 13:00 117 09/09/18 12:00 122 20 114/92 (99) 98 Room Air 09/09/18 11:08 99 Room Air 09/09/18 11:00 128 28 113/99 (104) 96 Room Air 09/09/18 10:18 99 Room Air 09/09/18 10:07 125 09/09/18 10:00 137 103/85 (91) 98 Room Air 09/09/18 09:45 129 112/91 (98) 100 Room Air 09/09/18 09:20 133 16 125/87 (100) 98 Room Air I & O 09/10/18 07:00 Intake Total 925 ml Output Total 3025 ml Balance -2100 ml Height & Weight Height: 6'4.00" Weight: 340lbs. 0.0oz. 154.241782gp; 41.4 BMI Method:Stated General Appearance: No Apparent Distress, WD/WN, Chronically ill, Obese HEENT: PERRL/EOMI, Normal ENT Inspection, Pharynx Normal, Moist Mucous Membranes Neck: Full Range of Motion, Normal Inspection, Non Tender Respiratory: Chest Non Tender, Normal Breath Sounds, No Accessory Muscle Use, No Respiratory Distress, Decreased Breath Sounds Cardiovascular: Regular Rate, Rhythm, No Gallop, No JVD, No Murmur, Normal Peripheral Pulses Capillary Refill: Less Than 3 Seconds Extremity: Normal Capillary Refill, Normal Inspection, Normal Range of Motion, Non Tender, No Calf Tenderness, Pedal Edema (anasarca) Neurologic/Psychiatric: Alert, Oriented x3, No Motor/Sensory Deficits, Normal Mood/Affect Skin: Normal Color, Warm/Dry Lymphatic: No Adenopathy Results Lab Laboratory Tests 09/09/18 06:05 09/10/18 03:15 Assessment/Plan Assessment/Plan Acute respiratory distress -Check ABG -- C02 31 -Check Echo BNP is 163 Anasarca -LFTs are WNL -CT of abd - reviewed -Restart home meds Dysphagia with meds -Will consult speech for swallow eval -Pt may need EGD Metabolic acidosis -Check LA Afib RVR -Cardiology is following -Cardizem gtt Alcoholism -Monitor for withdrawals CAD DM Morbid obesity with MARICRUZ -PT was intolerant of CPAP -Will do more education kana as out pt MARKO FAJARDO DO Sep 10, 2018 07:06
[2018-09-10] MEDS: HYDROcodone/APAP 5 MG/325 MG (LORTAB) TAB PO PRN ×2 (08:23→20:52)
--- NOTE | 2018-09-10 09:00 | Cardiology Progress Note ---
Subjective Date Seen by Provider: Sep 10, 2018 Time Seen by Provider: 08:57 Subjective/Events-last exam patient is laying down in bed, still having shortness of breath and diffuse edema. No chest pain Review of Systems General: No Chills, No Night Sweats, No Fatigue, No Malaise, No Appetite, No Other HEENT: No Head Aches, No Visual Changes, No Eye Pain, No Ear Pain, No Dysphasia , No Sinus Congestion, No Post Nasal Drip, No Sore Throat, No Other Pulmonary: Dyspnea; No Cough, No Pleuritic Chest Pain, No Other Cardiovascular: Edema; No: Chest Pain, Palpitations, Orthopnea, Paroxysmal Noc. Dyspnea, Lt Headedness, Other Objective-Cardiology Exam Last Set of Vital Signs Vital Signs 09/10/18 09/10/18 07:31 08:00 Temp 97.0 Pulse 87 Resp 11 B/P (MAP) 113/87 (96) Pulse Ox 96 O2 Delivery Room Air Capillary Refill : Less Than 3 Seconds I&O Intake and Output 09/10/18 00:00 Intake Total 925 ml Output Total 3025 ml Balance -2100 ml Intake Oral 925 ml Output Urine Total 3025 ml Daily Weight Change No General: Alert, Oriented X3, Cooperative HEENT: Atraumatic, PERRLA Neck: Supple, No JVD, No Thyromegaly Lungs: Clear to Auscultation, Normal Air Movement Heart: Regular Rate, Normal S1, Normal S2, No Murmurs Abdomen: Normal Bowel Sounds, Soft, No Tenderness, No Hepatosplenomegaly, No Masses Extremities: No Clubbing, No Cyanosis, Normal Pulses, No Tenderness/Swelling, Other (and anasarca) Skin: Other (yeast infection in the groin) Neuro: Normal Gait, Normal Speech, Strength at 5/5 X4 Ext, Normal Tone, Sensation Intact Psych/Mental Status: Mental Status NL, Mood NL Results Lab Laboratory Tests 09/10/18 03:15 A/P-Cardiology Admission Diagnosis Acute atrial fibrillation with rapid ventricular response Anasarca Hypertension Alcoholism Assessment/Plan Acute on chronic atrial fibrillation, chronic persistent atrial fibrillation, noncompliant with medication. heart rate is better controlled on Cardizem drip , I'll switch him to oral and monitor tolerance. Anasarca, extensive peripheral and abdominal edema. secondary to atrial fibrillation and heavy alcoholism, continue with diuretics and monitor, and Aldactone Hypokalemia, replace, hypomagnesemia, continue to replace and monitor Generalized weakness and loss of energy, significant weight gain secondary to anasarca Dyspnea, still having shortness of breath at this time but reporting improvement Coronary artery disease mild nonobstructive disease by cardiac catheterization in 2016. Continue to monitor Hypertension, continue to monitor blood pressure Hyperlipidemia, not taking any medication, monitor lipid, hold off on statin due to the heavy alcoholism Diabetes mellitus, followed and managed by Dr. Moreno Obesity, gained over 30 pounds recently with significant fluid retention. Discussed compliance with medication Obstructive sleep apnea, deviated septum, could not tolerate C Pap in the past, had [address] Mcelroy, managed by primary care physician. Arthritis, gouty arthritis. Managed by Dr. Moreno Heavy alcoholism, we had a long discussion about avoiding alcohol and compliance with medication.ed limiting alcohol Mild bilateral carotid stenosis, last ultrasound was done on May 25, 2017 , continue to monitor Peripheral neuropathy, having difficulty functioning. Working on disability Noncompliance with medication, educated in length about compliance Clinical Quality Measures DVT/VTE Risk/Contraindication: Risk Factor Score Per Nursin RFS Level Per Nursing on Admit: 4+=Very High DENNIS OLIVERA MD Sep 10, 2018 09:00
[2018-09-10] MEDS: FUROSEMIDE 40 MG/4 ML INJ (LASIX) IVP SCH ×2 (09:18→18:10)
[2018-09-10] MEDS: MAGNESIUM OXIDE (MAG-OX)400 MG TAB PO SCH ×2 (09:18→18:14)
[2018-09-10] MEDS: SPIRONOLACTONE 25 MG (ALDACTONE) TAB PO SCH (09:18)
--- NOTE | 2018-09-10 10:46 | Progress Note-Hospitalist ---
Subjective HPI/CC On Admission Date Seen by Provider: Sep 10, 2018 Time Seen by Provider: 09:30 Chief complaint: Swelling HPI: This is a 63yoWM that previously saw Dr. Hyatt and then Dr. Moreno but had not seen anyone because he did not have insurance and was fighting with disability of [facility], who continues to smoke and drinks alcohol a great deal who presented to the ER with Anasarca. Scrotal edema is causing pain. He reports feeling a little better since admission, Pt has been given Lasix and cardiology and pulmonology consult also. BNP is just slightly elevated at 165, echocardiogram will be obtained and Dr. Campos will evaluate. I will place him on alcohol withdrawal protocol. Pt's sister and ex- are at the bedside. I will evaluate any other needs he has and he will likely go back to Dr. Hyatt at [facility] at time of discharge. He does have Venous stasis changes of his lower extremities. Subjective/Events-last exam Minimal progress with diuresis Edema appears to be chronic lymphedema Conferred with Dr. Castellanos Alcohol withdrawal protocol maintained Smoking cessation discussed Overall very poor motivation Review of Systems General: Fatigue Cardiovascular: Edema Objective Exam Vital Signs Vital Signs Date Time Temp Pulse Resp B/P (MAP) Pulse Ox O2 Delivery O2 Flow Rate FiO2 09/10/18 11:00 75 14 105/82 (90) 97 Room Air 09/10/18 07:31 97.0 Capillary Refill : Less Than 3 Seconds General Appearance: No Apparent Distress, WD/WN, Chronically ill, Obese HEENT: PERRL/EOMI, Normal ENT Inspection, Pharynx Normal, Moist Mucous Membranes Neck: Full Range of Motion, Normal Inspection, Non Tender Respiratory: Chest Non Tender, Normal Breath Sounds, No Accessory Muscle Use, No Respiratory Distress, Decreased Breath Sounds Cardiovascular: Regular Rate, Rhythm, No Gallop, No JVD, No Murmur, Normal Peripheral Pulses, Irregularly Irregular Gastrointestinal: Normal Bowel Sounds, No Organomegaly, No Pulsatile Mass, Non Tender, Soft Back: Normal Inspection, No CVA Tenderness, No Vertebral Tenderness Extremity: Normal Capillary Refill, Normal Inspection, Normal Range of Motion, Non Tender, No Calf Tenderness, Pedal Edema (anasarca) Neurologic/Psychiatric: Alert, Oriented x3, No Motor/Sensory Deficits, Normal Mood/Affect Skin: Normal Color, Warm/Dry Lymphatic: No Adenopathy Results/Procedures Lab Laboratory Tests 09/10/18 03:15 Patient resulted labs reviewed. Assessment/Plan Assessment and Plan Assess & Plan/Chief Complaint Assessment: Anasarca AF Obesity Severe debility ETOHism Plan: ETOH withdrawal protocol Lasix Cardiology and Pulmonology evaluations are appreciated Diagnosis/Problems Diagnosis/Problems (1) Anasarca Status: Acute (2) ETOH abuse Status: Chronic (3) A-fib Status: Acute Clinical Quality Measures DVT/VTE Risk/Contraindication: Risk Factor Score Per Nursin RFS Level Per Nursing on Admit: 4+=Very High MO WYNN DO Sep 10, 2018 10:46
[2018-09-10] MEDS: FLUTICASONE NASAL SPRAY (FLONASE) 16 GM BTL NS SCH (10:52)
[2018-09-10] MEDS: ENOXAPARIN 300 MG/3 ML (LOVENOX) MULTI-DOSE VIAL SQ SCH ×2 (10:53→20:53)
--- NOTE | 2018-09-10 13:45 | Speech Therapy Progress Note ---
Therapy Progress Note entered room this am for Bedside Dysphagia Evaluation per physician's order. The patient had just finished breakfast without difficulty. The patient was seen again by this afternoon and he had eaten his complete lunch without difficulties. The Bedside Dysphagia Evaluation will be cancelled at this time due to patient consuming his meals without difficulty. WILL LOUIE Sep 10, 2018 13:45
[2018-09-10] MEDS: DILTIAZEM 30 MG (CARDIZEM) TAB PO SCH (18:14)
[2018-09-10] MEDS: MELATONIN 3 MG TABLET PO PRN (20:52)
[2018-09-11] VITALS (25 sets, daily range): BP systolic 100–135; BP diastolic 45–93
[2018-09-11 03:57] LABS: BASOPHILS % (AUTO) 0 % (0-10); EOSINOPHILS # (AUTO) 0.2 10^3/uL (0.0-0.3); EOSINOPHILS % (AUTO) 2 % (0-10); HEMATOCRIT 39 % (40-54); LYMPHOCYTES # (AUTO) 1.2 X 10^3 (1.0-4.0); LYMPHOCYTES % (AUTO) 16 % (12-44); MEAN CORPUSCULAR HEMOGLOBIN 33 PG (25-34); MEAN CORPUSCULAR HGB CONC 33 G/DL (32-36); MEAN CORPUSCULAR VOLUME 100 FL (80-99); MEAN PLATELET VOLUME 10.4 FL (7.4-10.4); MONOCYTES # (AUTO) 1.2 X 10^3 (0.0-1.0); MONOCYTES % (AUTO) 16 % (0-12); NEUTROPHILS % (AUTO) 66 % (42-75); PLATELET COUNT 150 10^3/uL (130-400); RED CELL DISTRIBUTION WIDTH 14.6 % (10.0-14.5); WHITE BLOOD COUNT 7.6 10^3/uL (4.3-11.0)
[2018-09-11 04:13] LABS: BUN/CREATININE RATIO 18; CARBON DIOXIDE 20 MMOL/L (21-32); CHLORIDE 103 MMOL/L (98-107); CREATININE SERUM 0.67 MG/DL (0.60-1.30); GFR ESTIMATED > 60; GLUCOSE 109 MG/DL (70-105); MAGNESIUM 1.4 MG/DL (1.8-2.4); PHOSPHORUS 3.6 MG/DL (2.3-4.7); SODIUM 133 MMOL/L (135-145)
[2018-09-11] MEDS: MAGNESIUM 1 GM/100 ML IVPB 100 ML IV SCH ×3 (04:45→06:47)
--- NOTE | 2018-09-11 05:51 | Pulmonary Progress Note ---
Subjective Time Seen by a Provider: 06:37 Subjective/Events-last exam Pt appears to be doing better. Sepsis Event Evaluation Height, Weight, BMI Height: 6'4.00" Weight: 331lbs. 0.0oz. 150.816310xe; 41.4 BMI Method:Stated Exam Exam Vital Signs Date Time Temp Pulse Resp B/P (MAP) Pulse Ox O2 Delivery O2 Flow Rate FiO2 09/11/18 05:00 116 114/93 (100) 98 Room Air 09/11/18 04:00 125 110/78 (89) 98 Room Air 09/11/18 04:00 98.3 09/11/18 04:00 97 Room Air 09/11/18 03:00 101 114/87 (96) 96 Room Air 09/11/18 02:00 101 110/85 (93) 95 Room Air 09/11/18 01:00 98 110/84 (93) 97 Room Air 09/11/18 01:00 103 09/11/18 00:00 97 Room Air 09/11/18 00:00 92 114/93 (100) 97 Room Air 09/11/18 00:00 97.9 09/10/18 23:00 92 122/104 (110) 95 Room Air 09/10/18 22:00 85 118/99 (105) 97 Room Air 09/10/18 21:00 97 103/95 (98) 96 Room Air 09/10/18 20:00 97 25 132/94 (107) 98 Room Air 09/10/18 20:00 100 Room Air 09/10/18 20:00 97.4 09/10/18 19:00 96 09/10/18 19:00 109 27 108/91 (97) 96 Room Air 09/10/18 18:00 116 23 135/99 (111) 99 Room Air 09/10/18 17:00 93 28 123/98 (106) 100 Room Air 09/10/18 16:00 105 22 125/96 (106) 99 Room Air 09/10/18 16:00 100 Room Air 09/10/18 15:00 84 10 114/85 (95) 95 Room Air 09/10/18 14:04 97.4 09/10/18 14:00 93 22 115/79 (91) 98 Room Air 09/10/18 13:00 112 31 70/36 (47) 93 Room Air 09/10/18 13:00 98 09/10/18 12:00 96 17 103/88 (93) 97 Room Air 09/10/18 12:00 100 Room Air 09/10/18 11:00 75 14 105/82 (90) 97 Room Air 09/10/18 10:00 85 16 120/80 (93) 97 Room Air 09/10/18 09:30 98 14 111/93 (99) 95 Room Air 09/10/18 09:15 86 23 110/80 (90) 98 Room Air 09/10/18 09:00 94 21 106/86 (93) 98 Room Air 09/10/18 08:30 106 24 113/84 (94) 98 Room Air 09/10/18 08:15 89 14 108/77 (87) 99 Room Air 09/10/18 08:00 87 11 113/87 (96) 96 Room Air 09/10/18 07:45 105 18 115/86 (96) 98 Room Air 09/10/18 07:36 100 Room Air 09/10/18 07:31 97.0 86 11 121/87 (98) 100 Room Air 09/10/18 07:15 82 26 121/87 (98) 97 Room Air 09/10/18 07:00 104 09/10/18 07:00 87 28 98/84 (89) 98 Room Air 09/10/18 06:00 98 14 107/85 (92) 98 Room Air I & O 09/11/18 07:00 Intake Total 4050 ml Output Total 3550 ml Balance 500 ml Height & Weight Height: 6'4.00" Weight: 331lbs. 0.0oz. 150.317321an; 41.4 BMI Method:Stated General Appearance: No Apparent Distress, WD/WN, Chronically ill, Obese HEENT: PERRL/EOMI, Normal ENT Inspection, Pharynx Normal, Moist Mucous Membranes Neck: Full Range of Motion, Normal Inspection, Non Tender Respiratory: Chest Non Tender, Normal Breath Sounds, No Accessory Muscle Use, No Respiratory Distress, Decreased Breath Sounds Cardiovascular: Regular Rate, Rhythm, No Gallop, No JVD, No Murmur, Normal Peripheral Pulses, Irregularly Irregular Capillary Refill: Less Than 3 Seconds Extremity: Normal Capillary Refill, Normal Inspection, Normal Range of Motion, Non Tender, No Calf Tenderness, Pedal Edema (anasarca) Neurologic/Psychiatric: Alert, Oriented x3, No Motor/Sensory Deficits, Normal Mood/Affect Skin: Normal Color, Warm/Dry Lymphatic: No Adenopathy Results Lab Laboratory Tests 09/09/18 06:05 09/10/18 03:15 09/11/18 03:40 Assessment/Plan Assessment/Plan Acute respiratory distress -Check ABG -- C02 31 - Echo EF 40-45% BNP is 163 Anasarca -LFTs are WNL -CT of abd - reviewed -Restart home meds Dysphagia with meds -Will consult speech for swallow eval -Pt may need EGD Afib RVR -Cardiology is following Alcoholism -Monitor for withdrawals CAD DM Morbid obesity with MARICRUZ -PT was intolerant of CPAP MARKO FAJARDO DO Sep 11, 2018 05:51
[2018-09-11] MEDS: DILTIAZEM 30 MG (CARDIZEM) TAB PO SCH ×2 (06:00)
[2018-09-11] MEDS: FUROSEMIDE 40 MG/4 ML INJ (LASIX) IVP SCH ×2 (06:47→16:47)
--- NOTE | 2018-09-11 08:40 | Diagnostic Imaging Report ---
Indication: Shortness of breath, cardiac enlargement. Comparison: 09/10/2018 Findings: Single view of the chest demonstrates stable cardiac enlargement without pulmonary edema or infiltrate. There is no pneumothorax or effusion. Osseous structures stable. Impression: Stable cardiac enlargement without pulmonary edema or infiltrate. Dictated by: Dictated on workstation # [id number]
--- NOTE | 2018-09-11 09:12 | Cardiology Progress Note ---
Subjective Date Seen by Provider: Sep 11, 2018 Time Seen by Provider: 09:11 Subjective/Events-last exam patient is laying down in bed, feeling better, denied any chest pain, no palpitation, swelling is improving Review of Systems General: No Chills, No Night Sweats, No Fatigue, No Malaise, No Appetite, No Other HEENT: No Head Aches, No Visual Changes, No Eye Pain, No Ear Pain, No Dysphasia , No Sinus Congestion, No Post Nasal Drip, No Sore Throat, No Other Pulmonary: Dyspnea; No Cough, No Pleuritic Chest Pain, No Other Cardiovascular: Edema; No: Chest Pain, Palpitations, Orthopnea, Paroxysmal Noc. Dyspnea, Lt Headedness, Other Gastrointestinal: Constipation Objective-Cardiology Exam Last Set of Vital Signs Vital Signs 09/11/18 09/11/18 08:07 08:10 Temp 98.2 Pulse 96 Resp 28 B/P (MAP) 113/84 (94) Pulse Ox 96 O2 Delivery Room Air Capillary Refill : Less Than 3 Seconds I&O Intake and Output 09/11/18 00:00 Intake Total 3675 ml Output Total 3450 ml Balance 225 ml Intake Oral 3350 ml IV Total 325 ml Output Urine Total 3450 ml General: Alert, Oriented X3, Cooperative HEENT: Atraumatic, PERRLA Neck: Supple, No JVD, No Thyromegaly Lungs: Clear to Auscultation, Normal Air Movement Heart: Normal S1, Normal S2, No Murmurs, Other (irregular rhythm) Abdomen: Normal Bowel Sounds, Soft, No Tenderness, No Hepatosplenomegaly, No Masses Extremities: No Clubbing, No Cyanosis, Normal Pulses, No Tenderness/Swelling, Other (and anasarca) Skin: Other (yeast infection in the groin) Neuro: Normal Gait, Normal Speech, Strength at 5/5 X4 Ext, Normal Tone, Sensation Intact Psych/Mental Status: Mental Status NL, Mood NL Results Lab Laboratory Tests 09/11/18 03:40 A/P-Cardiology Admission Diagnosis Acute atrial fibrillation with rapid ventricular response Anasarca Hypertension Alcoholism Assessment/Plan Acute on chronic atrial fibrillation, chronic persistent atrial fibrillation, noncompliant with medication, currently on Cardizem, I'll change him to Cardizem CD 240 mg daily and evaluate tolerance and response Anasarca, extensive peripheral and abdominal edema. secondary to atrial fibrillation and heavy alcoholism, maintained on Lasix and Aldactone, continue to monitor Generalized weakness and loss of energy, significant weight gain secondary to anasarca Dyspnea, still having shortness of breath at this time but reporting improvement Coronary artery disease mild nonobstructive disease by cardiac catheterization in 2016. Continue to monitor Hypertension, continue to monitor blood pressure Hyperlipidemia, not taking any medication, monitor lipid, hold off on statin due to the heavy alcoholism Diabetes mellitus, followed and managed by Dr. Moreno Obesity, gained over 30 pounds recently with significant fluid retention. Discussed compliance with medication Obstructive sleep apnea, deviated septum, could not tolerate C Pap in the past, had [address] Mcelroy, managed by primary care physician. Arthritis, gouty arthritis. Managed by Dr. Moreno Heavy alcoholism, we had a long discussion about avoiding alcohol and compliance with medication.ed limiting alcohol Mild bilateral carotid stenosis, last ultrasound was done on May 25, 2017 , continue to monitor Peripheral neuropathy, having difficulty functioning. Working on disability Noncompliance with medication, educated in length about compliance Clinical Quality Measures DVT/VTE Risk/Contraindication: Risk Factor Score Per Nursin RFS Level Per Nursing on Admit: 4+=Very High DENNIS OLIVERA MD Sep 11, 2018 09:12
[2018-09-11] MEDS: MAGNESIUM OXIDE (MAG-OX)400 MG TAB PO SCH ×2 (09:16→16:47)
[2018-09-11] MEDS: SPIRONOLACTONE 25 MG (ALDACTONE) TAB PO SCH ×2 (09:16→16:47)
[2018-09-11] MEDS: FLUTICASONE NASAL SPRAY (FLONASE) 16 GM BTL NS SCH (09:16)
[2018-09-11] MEDS ORDERED: DILTIAZEM 240 MG (CARDIZEM CD) CAP PO ONE (09:20)
[2018-09-11] MEDS: DILTIAZEM 240 MG (CARDIZEM CD) CAP PO SCH (09:22)
[2018-09-11] MEDS: DOCUSATE SODIUM 100 MG (COLACE) CAP PO SCH ×2 (09:22→21:08)
[2018-09-11] MEDS: ENOXAPARIN 300 MG/3 ML (LOVENOX) MULTI-DOSE VIAL SQ SCH ×2 (09:23→22:13)
[2018-09-11] MEDS: HYDROcodone/APAP 5 MG/325 MG (LORTAB) TAB PO PRN ×3 (09:34→21:08)
--- NOTE | 2018-09-11 11:40 | Progress Note-Hospitalist ---
Subjective HPI/CC On Admission Date Seen by Provider: Sep 11, 2018 Time Seen by Provider: 08:30 Chief complaint: Swelling HPI: This is a 63yoWM that previously saw Dr. Hyatt and then Dr. Moreno but had not seen anyone because he did not have insurance and was fighting with disability of [facility] [employer], who continues to smoke and drinks alcohol a great deal who presented to the ER with Anasarca. Scrotal edema is causing pain. He reports feeling a little better since admission, Pt has been given Lasix and cardiology and pulmonology consult also. BNP is just slightly elevated at 165, echocardiogram will be obtained and Dr. Campos will evaluate. I will place him on alcohol withdrawal protocol. Pt's sister and ex- are at the bedside. I will evaluate any other needs he has and he will likely go back to Dr. Hyatt at [facility] at time of discharge. He does have Venous stasis changes of his lower extremities. Subjective/Events-last exam Patient concerned about ongoing scrotal swelling reporting some irritation. He does have Zinc oxide at the bedside for when necessary use. He denies chest or abdominal pain not feeling as fatigued today and less short of breath. He's had no chest pain or palpitations. Objective Exam Vital Signs Vital Signs Date Time Temp Pulse Resp B/P (MAP) Pulse Ox O2 Delivery O2 Flow Rate FiO2 09/11/18 10:00 113 12 Room Air 09/11/18 09:00 113/83 (93) 95 09/11/18 08:07 98.2 Capillary Refill : Less Than 3 Seconds General Appearance: No Apparent Distress, WD/WN, Chronically ill, Obese HEENT: PERRL/EOMI, Normal ENT Inspection, Pharynx Normal, Moist Mucous Membranes Neck: Full Range of Motion, Normal Inspection, Non Tender Respiratory: Chest Non Tender, Normal Breath Sounds, No Accessory Muscle Use, No Respiratory Distress, Decreased Breath Sounds Cardiovascular: No JVD, No Murmur, Normal Peripheral Pulses, Irregularly Irregular Gastrointestinal: Normal Bowel Sounds, No Organomegaly, No Pulsatile Mass, Non Tender, Soft Genital/Rectal: Other (4+ scrotal edema) Back: Normal Inspection, No CVA Tenderness, No Vertebral Tenderness Extremity: No Calf Tenderness, Pedal Edema (anasarca), Other (Diminished sensation bilaterally with dependent rubor extremities are warm unable to appreciate pulses due to brawny edema bilaterally.) Neurologic/Psychiatric: Alert, Oriented x3 Skin: Normal Color, Warm/Dry Lymphatic: No Adenopathy Results/Procedures Lab Laboratory Tests 09/11/18 03:40 Patient resulted labs reviewed. Assessment/Plan Assessment and Plan Assess & Plan/Chief Complaint A/P 1. 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 Miller's note. Advised the patient decrease his by mouth intake as he has been pushing fluids and blood pressure is acceptable. Will increase Aldactone to 25 mg twice a day and discussed it the patient is tolerating to 240 mg diltiazem today pending heart rates adding beta rosalia therapy later today or tomorrow per Dr. Miller's discretion. Pedis discussion with the patient that alcohol will continue to damage his heart and liver making fluid difficult to control not to mention multiple other negative quality of life issues energy level life expectancy etc. if he continued to drink no one discharge. He is a long history of noncompliance with medication and physician visits per other health care providers reports. 2. Atrial fibrillation rapid ventricular response in number 1. 3. Acute on chronic systolic and diastolic heart failure multifactorial. 4. Type II diabetes mellitus under reasonable control the hospital continue current therapeutics and agree with transfer to the floor. Complex medical management. Clinical Quality Measures DVT/VTE Risk/Contraindication: Risk Factor Score Per Nursin RFS Level Per Nursing on Admit: 4+=Very High CORNELIA MI MD Sep 11, 2018 11:40
[2018-09-11] MEDS: SENNA W/DOCUSATE (SENOKOT S) TABLET PO PRN (16:58)
[2018-09-11] MEDS ORDERED: MAGNESIUM OXIDE (MAG-OX)400 MG TAB PO SCH (18:00)
[2018-09-11] MEDS: MELATONIN 3 MG TABLET PO PRN (21:08)
[2018-09-12] VITALS (8 sets, daily range): BP systolic 100–139; BP diastolic 71–93
[2018-09-12] MEDS: HYDROcodone/APAP 5 MG/325 MG (LORTAB) TAB PO PRN ×4 (00:39→22:53)
[2018-09-12 03:57] LABS: BASOPHILS % (AUTO) 0 % (0-10); EOSINOPHILS # (AUTO) 0.2 10^3/uL (0.0-0.3); EOSINOPHILS % (AUTO) 2 % (0-10); HEMATOCRIT 41 % (40-54); HEMOGLOBIN 13.7 G/DL (13.3-17.7); LYMPHOCYTES # (AUTO) 1.5 X 10^3 (1.0-4.0); LYMPHOCYTES % (AUTO) 17 % (12-44); MEAN CORPUSCULAR HEMOGLOBIN 33 PG (25-34); MEAN CORPUSCULAR HGB CONC 33 G/DL (32-36); MEAN CORPUSCULAR VOLUME 100 FL (80-99); MEAN PLATELET VOLUME 10.2 FL (7.4-10.4); MONOCYTES # (AUTO) 1.3 X 10^3 (0.0-1.0); MONOCYTES % (AUTO) 14 % (0-12); NEUTROPHILS % (AUTO) 67 % (42-75); PLATELET COUNT 177 10^3/uL (130-400); RED CELL DISTRIBUTION WIDTH 14.9 % (10.0-14.5)
[2018-09-12 04:29] LABS: BUN/CREATININE RATIO 14; CALCIUM 9.3 MG/DL (8.5-10.1); CARBON DIOXIDE 20 MMOL/L (21-32); CHLORIDE 103 MMOL/L (98-107); CREATININE SERUM 0.69 MG/DL (0.60-1.30); GFR ESTIMATED > 60; GLUCOSE 115 MG/DL (70-105); MAGNESIUM 1.4 MG/DL (1.8-2.4); PHOSPHORUS 3.6 MG/DL (2.3-4.7); POTASSIUM 4.2 MMOL/L (3.6-5.0); SODIUM 135 MMOL/L (135-145)
--- NOTE | 2018-09-12 06:19 | Pulmonary Progress Note ---
Subjective Time Seen by a Provider: 06:19 Subjective/Events-last exam PT is on RA. No complications noted. Sepsis Event Evaluation Height, Weight, BMI Height: 6'4.00" Weight: 330lbs. 0.0oz. 149.216766rh; 41.4 BMI Method:Stated Exam Exam Vital Signs Date Time Temp Pulse Resp B/P (MAP) Pulse Ox O2 Delivery O2 Flow Rate FiO2 09/12/18 04:00 98.0 99 18 100/85 (90) 96 Room Air 09/12/18 01:00 90 09/12/18 00:00 97.6 92 18 128/89 (102) 98 Room Air 09/11/18 21:00 96 Room Air 09/11/18 20:00 98.8 89 20 118/81 (93) 97 Room Air 09/11/18 19:00 103 09/11/18 17:00 96 Room Air 09/11/18 16:00 118 19 120/90 (100) Room Air 09/11/18 13:16 98.4 104 20 112/88 (96) 96 Room Air 09/11/18 13:00 123 09/11/18 10:00 113 12 Room Air 09/11/18 09:00 120 22 113/83 (93) 95 Room Air 09/11/18 08:10 96 Room Air 09/11/18 08:07 98.2 96 28 113/84 (94) 96 Room Air 09/11/18 07:15 89 20 101/46 (64) 95 Room Air 09/11/18 07:00 140 I & O 09/12/18 07:00 Intake Total 2500 ml Output Total 5850 ml Balance -3350 ml Height & Weight Height: 6'4.00" Weight: 330lbs. 0.0oz. 149.439034xx; 41.4 BMI Method:Stated General Appearance: No Apparent Distress, WD/WN, Chronically ill, Obese HEENT: PERRL/EOMI, Normal ENT Inspection, Pharynx Normal, Moist Mucous Membranes Neck: Full Range of Motion, Normal Inspection, Non Tender Respiratory: Chest Non Tender, Normal Breath Sounds, No Accessory Muscle Use, No Respiratory Distress, Decreased Breath Sounds Cardiovascular: No JVD, No Murmur, Normal Peripheral Pulses, Irregularly Irregular Capillary Refill: Less Than 3 Seconds Extremity: No Calf Tenderness, Pedal Edema (anasarca), Other (Diminished sensation bilaterally with dependent rubor extremities are warm unable to appreciate pulses due to brawny edema bilaterally.) Neurologic/Psychiatric: Alert, Oriented x3 Skin: Normal Color, Warm/Dry Lymphatic: No Adenopathy Results Lab Laboratory Tests 09/11/18 03:40 09/12/18 03:40 Assessment/Plan Assessment/Plan SOB - improving -Check ABG -- C02 31 - Echo EF 40-45% Anasarca -LFTs are WNL -CT of abd - reviewed -Restart home meds Afib RVR -Cardiology is following Alcoholism -Monitor for withdrawals CAD DM Morbid obesity with MARICRUZ -PT was intolerant of CPAP MARKO FAJARDO DO Sep 12, 2018 06:19
[2018-09-12] MEDS: FUROSEMIDE 40 MG/4 ML INJ (LASIX) IVP SCH ×2 (07:02→18:10)
[2018-09-12] MEDS: SPIRONOLACTONE 25 MG (ALDACTONE) TAB PO SCH ×2 (07:03→18:10)
[2018-09-12] MEDS: MAGNESIUM OXIDE (MAG-OX)400 MG TAB PO SCH ×2 (08:03→18:10)
[2018-09-12] MEDS: DILTIAZEM 240 MG (CARDIZEM CD) CAP PO SCH (08:03)
[2018-09-12] MEDS: DOCUSATE SODIUM 100 MG (COLACE) CAP PO SCH ×2 (08:03→21:34)
[2018-09-12] MEDS: FLUTICASONE NASAL SPRAY (FLONASE) 16 GM BTL NS SCH (08:03)
--- NOTE | 2018-09-12 08:25 | NUR ---
REC'D PER WC FROM ICU. SEE ASSESSMENT.
--- NOTE | 2018-09-12 09:14 | Diagnostic Imaging Report ---
Indication: Shortness of breath. Comparison: 09/11/2018 Findings: Single view of the chest demonstrates cardiac enlargement without overt pulmonary edema. Lungs are clear. There is no infiltrate. There is no pneumothorax. The osseous structures are normal. Impression: Stable cardiac enlargement without pulmonary edema or infiltrate. Dictated by: Dictated on workstation # [id number]
[2018-09-12] MEDS: ENOXAPARIN 300 MG/3 ML (LOVENOX) MULTI-DOSE VIAL SQ SCH ×2 (09:38→21:34)
--- NOTE | 2018-09-12 10:22 | Cardiology Progress Note ---
Subjective Date Seen by Provider: Sep 12, 2018 Time Seen by Provider: 10:21 Subjective/Events-last exam patient is laying down in bed, feeling better, heart rate is better, diuresing well. Review of Systems General: No Chills, No Night Sweats, No Fatigue, No Malaise, No Appetite, No Other HEENT: No Head Aches, No Visual Changes, No Eye Pain, No Ear Pain, No Dysphasia , No Sinus Congestion, No Post Nasal Drip, No Sore Throat, No Other Pulmonary: No Dyspnea, No Cough, No Pleuritic Chest Pain, No Other Cardiovascular: No: Chest Pain, Palpitations, Orthopnea, Paroxysmal Noc. Dyspnea, Edema, Lt Headedness, Other Objective-Cardiology Exam Last Set of Vital Signs Vital Signs 09/12/18 09/12/18 08:20 09:14 Temp 97.5 Pulse 120 Resp 20 B/P (MAP) 131/86 (101) Pulse Ox 97 O2 Delivery Room Air Capillary Refill : Less Than 3 SecondsLess Than 3 Seconds I&O Intake and Output 09/12/18 00:00 Intake Total 3600 ml Output Total 6200 ml Balance -2600 ml Intake Oral 3400 ml IV Total 200 ml Output Urine Total 6200 ml # Bowel Movements 1 General: Alert, Oriented X3, Cooperative HEENT: Atraumatic, PERRLA Neck: Supple, No JVD, No Thyromegaly Lungs: Clear to Auscultation, Normal Air Movement Heart: Normal S1, Normal S2, No Murmurs, Other (irregular rhythm) Abdomen: Normal Bowel Sounds, Soft, No Tenderness, No Hepatosplenomegaly, No Masses Extremities: No Clubbing, No Cyanosis, Normal Pulses, No Tenderness/Swelling, Other (and anasarca) Skin: Other (yeast infection in the groin) Neuro: Normal Gait, Normal Speech, Strength at 5/5 X4 Ext, Normal Tone, Sensation Intact Psych/Mental Status: Mental Status NL, Mood NL Results Lab Laboratory Tests 09/12/18 03:40 A/P-Cardiology Admission Diagnosis Acute atrial fibrillation with rapid ventricular response Anasarca Hypertension Alcoholism Assessment/Plan Acute on chronic atrial fibrillation, chronic persistent atrial fibrillation, noncompliant with medication, still borderline tachycardic, I'll add Toprol-XL 25 mg daily. Anasarca, extensive peripheral and abdominal edema. secondary to atrial fibrillation and heavy alcoholism, maintained on Lasix and Aldactone, responding well. Continue to monitor Generalized weakness and loss of energy, significant weight gain secondary to anasarca Dyspnea, still having shortness of breath at this time but reporting improvement Coronary artery disease mild nonobstructive disease by cardiac catheterization in 2016. Continue to monitor Hypertension, continue to monitor blood pressure Hyperlipidemia, not taking any medication, monitor lipid, hold off on statin due to the heavy alcoholism Diabetes mellitus, followed and managed by Dr. Moreno Obesity, gained over 30 pounds recently with significant fluid retention. Discussed compliance with medication Obstructive sleep apnea, deviated septum, could not tolerate C Pap in the past, had [address] Mcelroy, managed by primary care physician. Arthritis, gouty arthritis. Managed by Dr. Moreno Heavy alcoholism, we had a long discussion about avoiding alcohol and compliance with medication.ed limiting alcohol Mild bilateral carotid stenosis, last ultrasound was done on May 25, 2017 , continue to monitor Peripheral neuropathy, having difficulty functioning. Working on disability Noncompliance with medication, educated in length about compliance Clinical Quality Measures DVT/VTE Risk/Contraindication: Risk Factor Score Per Nursin RFS Level Per Nursing on Admit: 4+=Very High DENNIS OLIVERA MD Sep 12, 2018 10:22
[2018-09-12] MEDS ORDERED: POLYETHYLENE GLYCOL 17 GM (MIRALAX) PACK PO NR (10:30)
--- NOTE | 2018-09-12 12:38 | Progress Note-Hospitalist ---
Subjective HPI/CC On Admission Date Seen by Provider: Sep 12, 2018 Time Seen by Provider: 08:30 Chief complaint: Swelling HPI: This is a 63yoWM that previously saw Dr. Hyatt and then Dr. Moreno but had not seen anyone because he did not have insurance and was fighting with disability of [facility] [employer], who continues to smoke and drinks alcohol a great deal who presented to the ER with Anasarca. Scrotal edema is causing pain. He reports feeling a little better since admission, Pt has been given Lasix and cardiology and pulmonology consult also. BNP is just slightly elevated at 165, echocardiogram will be obtained and Dr. Campos will evaluate. I will place him on alcohol withdrawal protocol. Pt's sister and ex- are at the bedside. I will evaluate any other needs he has and he will likely go back to Dr. Hyatt at [facility] at time of discharge. He does have Venous stasis changes of his lower extremities. Subjective/Events-last exam Patient reports leg edema is decreasing but still has uncomfortable scrotal edema. This is his major complaint. He denies chest discomfort or shortness of breath at rest. Objective Exam Vital Signs Vital Signs Date Time Temp Pulse Resp B/P (MAP) Pulse Ox O2 Delivery O2 Flow Rate FiO2 09/12/18 11:00 97.5 95 20 125/86 (99) 97 Room Air Capillary Refill : Less Than 3 SecondsLess Than 3 Seconds General Appearance: WD/WN, Chronically ill, Mild Distress, Obese Neck: Full Range of Motion, Normal Inspection, Non Tender Respiratory: Chest Non Tender, Normal Breath Sounds, No Accessory Muscle Use, No Respiratory Distress, Decreased Breath Sounds Cardiovascular: No JVD, No Murmur, Normal Peripheral Pulses, Irregularly Irregular Gastrointestinal: Normal Bowel Sounds, No Organomegaly, No Pulsatile Mass, Non Tender, Soft Genital/Rectal: Other (4+ scrotal edema) Back: Normal Inspection, No CVA Tenderness, No Vertebral Tenderness Extremity: No Calf Tenderness, Pedal Edema (anasarca), Other (Diminished sensation bilaterally with dependent rubor extremities are warm unable to appreciate pulses due to brawny edema bilaterally.) Neurologic/Psychiatric: Alert, Oriented x3 Skin: Normal Color, Warm/Dry Lymphatic: No Adenopathy Results/Procedures Lab Laboratory Tests 09/12/18 03:40 Patient resulted labs reviewed. Assessment/Plan Assessment and Plan Assess & Plan/Chief Complaint A/P 1. 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 Miller's note. Advised the patient decrease his by mouth intake as he has been pushing fluids and blood pressure is acceptable. 3+ liter fluid out greater than in doubt accuracy of bedside scale noting only half a kilo weight loss. 2. Atrial fibrillation rapid ventricular response rate trending lower defer to Dr. Miller 3. Acute on chronic systolic and diastolic heart failure multifactorial moderating with fluid mobilization continue current diuretic therapy in the form of IV Lasix and twice a day Aldactone 25 mg. 4. Type II diabetes mellitus under reasonable control the hospital continue current therapeutics and agree with transfer to the floor. Complex medical management. 5. Scrotal edema secondary to number 1 scrotum was too large for a scrotal sling but demonstrated the use of a large folded towel to obtain elevation which will hopefully help in addition to number 3 Clinical Quality Measures DVT/VTE Risk/Contraindication: Risk Factor Score Per Nursin RFS Level Per Nursing on Admit: 4+=Very High CORNELIA MI MD Sep 12, 2018 12:38
--- NOTE | 2018-09-12 14:45 | NUR ---
LORTAB 5MG PO FOR SCROTAL PAIN.
[2018-09-12] MEDS: MELATONIN 3 MG TABLET PO PRN (21:34)
[2018-09-13 04:00] VITALS: BP 149/86
[2018-09-13 05:02] LABS: BASOPHILS % (AUTO) 0 % (0-10); EOSINOPHILS # (AUTO) 0.2 10^3/uL (0.0-0.3); EOSINOPHILS % (AUTO) 3 % (0-10); HEMATOCRIT 41 % (40-54); HEMOGLOBIN 13.3 G/DL (13.3-17.7); LYMPHOCYTES # (AUTO) 1.4 X 10^3 (1.0-4.0); LYMPHOCYTES % (AUTO) 21 % (12-44); MEAN CORPUSCULAR HEMOGLOBIN 33 PG (25-34); MEAN CORPUSCULAR HGB CONC 33 G/DL (32-36); MEAN CORPUSCULAR VOLUME 100 FL (80-99); MEAN PLATELET VOLUME 10.7 FL (7.4-10.4); MONOCYTES # (AUTO) 1.1 X 10^3 (0.0-1.0); MONOCYTES % (AUTO) 17 % (0-12); NEUTROPHILS # (AUTO) 3.9 X 10^3 (1.8-7.8); NEUTROPHILS % (AUTO) 59 % (42-75); PLATELET COUNT 151 10^3/uL (130-400); RED CELL DISTRIBUTION WIDTH 14.6 % (10.0-14.5); WHITE BLOOD COUNT 6.7 10^3/uL (4.3-11.0)
[2018-09-13 05:26] LABS: BUN/CREATININE RATIO 17; CALCIUM 9.4 MG/DL (8.5-10.1); CARBON DIOXIDE 22 MMOL/L (21-32); CHLORIDE 102 MMOL/L (98-107); CREATININE SERUM 0.66 MG/DL (0.60-1.30); GFR ESTIMATED > 60; GLUCOSE 106 MG/DL (70-105); MAGNESIUM 1.4 MG/DL (1.8-2.4); PHOSPHORUS 3.8 MG/DL (2.3-4.7); POTASSIUM 3.8 MMOL/L (3.6-5.0); SODIUM 137 MMOL/L (135-145)
--- NOTE | 2018-09-13 06:18 | Pulmonary Progress Note ---
Subjective Time Seen by a Provider: 06:17 Subjective/Events-last exam Pt appears to be improving Sepsis Event Evaluation Height, Weight, BMI Height: 6'4.00" Weight: 314lbs. 0.0oz. 142.782927qt; 41.4 BMI Method:Stated Exam Exam Vital Signs Date Time Temp Pulse Resp B/P (MAP) Pulse Ox O2 Delivery O2 Flow Rate FiO2 09/13/18 01:00 105 09/12/18 23:10 98.8 98 20 139/76 (97) 95 Room Air 09/12/18 20:15 95 Room Air 09/12/18 19:57 97.4 97 18 114/71 (85) 98 Room Air 09/12/18 19:00 91 09/12/18 16:41 98.1 105 18 119/84 (96) 96 Room Air 09/12/18 13:00 105 09/12/18 11:00 97.5 95 20 125/86 (99) 97 Room Air 09/12/18 09:14 Room Air 09/12/18 08:20 97.5 120 20 131/86 (101) 97 Room Air 09/12/18 08:06 96.5 123 18 116/93 (101) 96 Room Air 09/12/18 07:00 141 I & O 09/13/18 07:00 Intake Total 1410 ml Output Total 4925 ml Balance -3515 ml Height & Weight Height: 6'4.00" Weight: 314lbs. 0.0oz. 142.669405aj; 41.4 BMI Method:Stated General Appearance: WD/WN, Chronically ill, Mild Distress, Obese Neck: Full Range of Motion, Normal Inspection, Non Tender Respiratory: Chest Non Tender, Normal Breath Sounds, No Accessory Muscle Use, No Respiratory Distress, Decreased Breath Sounds Cardiovascular: No JVD, No Murmur, Normal Peripheral Pulses, Irregularly Irregular Capillary Refill: Less Than 3 Seconds Extremity: No Calf Tenderness, Pedal Edema (anasarca), Other (Diminished sensation bilaterally with dependent rubor extremities are warm unable to appreciate pulses due to brawny edema bilaterally.) Neurologic/Psychiatric: Alert, Oriented x3 Skin: Normal Color, Warm/Dry Lymphatic: No Adenopathy Results Lab Laboratory Tests 09/12/18 03:40 09/13/18 04:08 Assessment/Plan Assessment/Plan Dyspnea -Check ABG -- C02 31 - Echo EF 40-45% Anasarca -LFTs are WNL -CT of abd - reviewed Dysphagia with meds -Will consult speech for swallow eval -Pt may need EGD Afib RVR -Cardiology is following Alcoholism -Monitor for withdrawals CAD DM Morbid obesity with MARICRUZ -PT was intolerant of CPAP Pt is doing better from pulmonary standpoint. I am going to sign off. Please call with any questions. MAKRO FAJARDO DO Sep 13, 2018 06:18
[2018-09-13] MEDS: SPIRONOLACTONE 25 MG (ALDACTONE) TAB PO SCH ×2 (06:32→16:45)
[2018-09-13] MEDS: FUROSEMIDE 40 MG/4 ML INJ (LASIX) IVP SCH ×2 (06:33→16:45)
[2018-09-13 08:00] VITALS: BP 133/63
[2018-09-13] MEDS: FLUTICASONE NASAL SPRAY (FLONASE) 16 GM BTL NS SCH (08:13)
[2018-09-13] MEDS: DILTIAZEM 240 MG (CARDIZEM CD) CAP PO SCH (08:14)
[2018-09-13] MEDS: DOCUSATE SODIUM 100 MG (COLACE) CAP PO SCH ×2 (08:14→21:10)
[2018-09-13] MEDS: MAGNESIUM OXIDE (MAG-OX)400 MG TAB PO SCH ×2 (08:14→16:45)
[2018-09-13] MEDS: ENOXAPARIN 300 MG/3 ML (LOVENOX) MULTI-DOSE VIAL SQ SCH ×2 (08:16→21:12)
--- NOTE | 2018-09-13 08:43 | Cardiology Progress Note ---
Subjective Date Seen by Provider: Sep 13, 2018 Time Seen by Provider: 08:41 Subjective/Events-last exam Patient is sitting up in bed, continues to complain of testicular edema. Denies any chest pain or increased dyspnea. Objective-Cardiology Exam Last Set of Vital Signs Vital Signs 09/13/18 08:00 Temp 97.0 Pulse 99 Resp 18 B/P (MAP) 133/63 (86) Pulse Ox 96 O2 Delivery Room Air Capillary Refill : Less Than 3 SecondsLess Than 3 Seconds I&O Intake and Output 09/13/18 00:00 Intake Total 1610 ml Output Total 5325 ml Balance -3715 ml Intake Oral 1610 ml Output Urine Total 5325 ml # Bowel Movements 1 General: Alert, Oriented X3, Cooperative HEENT: Atraumatic, PERRLA Neck: Supple, No JVD, No Thyromegaly Lungs: Clear to Auscultation, Normal Air Movement Heart: Normal S1, Normal S2, No Murmurs, Other (irregular rhythm) Abdomen: Normal Bowel Sounds, Soft, No Tenderness, No Hepatosplenomegaly, No Masses Extremities: No Clubbing, No Cyanosis, Normal Pulses, No Tenderness/Swelling, Other ( anasarca) Skin: Other (yeast infection in the groin) Neuro: Normal Gait, Normal Speech, Strength at 5/5 X4 Ext, Normal Tone, Sensation Intact Psych/Mental Status: Mental Status NL, Mood NL Results Lab Laboratory Tests 09/13/18 04:08 A/P-Cardiology Admission Diagnosis Acute atrial fibrillation with rapid ventricular response Anasarca Hypertension Alcoholism Assessment/Plan Acute on chronic atrial fibrillation, chronic persistent atrial fibrillation, noncompliant with medication, still borderline tachycardic, started on Toprol- XL 25 mg yesterday, continue to monitor. Anasarca, extensive peripheral and abdominal edema. secondary to atrial fibrillation and heavy alcoholism, maintained on Lasix and Aldactone, responding well. Continue to monitor Generalized weakness and loss of energy, significant weight gain secondary to anasarca Dyspnea, still having shortness of breath at this time but reporting improvement Coronary artery disease mild nonobstructive disease by cardiac catheterization in 2016. Continue to monitor Hypertension, controlled, continue to monitor blood pressure Hyperlipidemia, not taking any medication, monitor lipid, hold off on statin due to the heavy alcoholism Diabetes mellitus, followed and managed by Dr. Moreno Obesity, gained over 30 pounds recently with significant fluid retention. Discussed compliance with medication Obstructive sleep apnea, deviated septum, could not tolerate C Pap in the past, had [address] Mcelroy, managed by primary care physician. Arthritis, gouty arthritis. Managed by Dr. Moreno Heavy alcoholism, we had a long discussion about avoiding alcohol and compliance with medication.ed limiting alcohol Mild bilateral carotid stenosis, last ultrasound was done on May 25, 2017 , continue to monitor Peripheral neuropathy, having difficulty functioning. Working on disability Noncompliance with medication, educated in length about compliance Clinical Quality Measures DVT/VTE Risk/Contraindication: Risk Factor Score Per Nursin RFS Level Per Nursing on Admit: 4+=Very High MASSIEL ADAMSON Sep 13, 2018 08:43
--- NOTE | 2018-09-13 08:56 | Progress Note-Hospitalist ---
Subjective HPI/CC On Admission Date Seen by Provider: Sep 13, 2018 Time Seen by Provider: 08:43 Chief complaint: Swelling HPI: This is a 63yoWM that previously saw Dr. Hyatt and then Dr. Moreno but had not seen anyone because he did not have insurance and was fighting with disability of [facility] [employer], who continues to smoke and drinks alcohol a great deal who presented to the ER with Anasarca. Scrotal edema is causing pain. He reports feeling a little better since admission, Pt has been given Lasix and cardiology and pulmonology consult also. BNP is just slightly elevated at 165, echocardiogram will be obtained and Dr. Campos will evaluate. I will place him on alcohol withdrawal protocol. Pt's sister and ex- are at the bedside. I will evaluate any other needs he has and he will likely go back to Dr. Hyatt at [facility] at time of discharge. He does have Venous stasis changes of his lower extremities. Subjective/Events-last exam Pt reports doing ok. Feels better overall but still have significant edema in his scrotum. Has not gotten out of bed because he feels too weak and his scrotum is swollen. He also has not sat in the chair because he doesn't like the nylon on the chair. He expresses concern about medication. Objective Exam Vital Signs Vital Signs Date Time Temp Pulse Resp B/P (MAP) Pulse Ox O2 Delivery O2 Flow Rate FiO2 09/13/18 09:00 96 Room Air 09/13/18 08:00 97.0 99 18 133/63 (86) Capillary Refill : Less Than 3 SecondsLess Than 3 Seconds General Appearance: Chronically ill, Mild Distress, Obese Respiratory: Chest Non Tender, Normal Breath Sounds, No Accessory Muscle Use, No Respiratory Distress, Decreased Breath Sounds Cardiovascular: No JVD, No Murmur, Irregularly Irregular Genital/Rectal: Other (4+ scrotal edema, blakely in place) Extremity: No Calf Tenderness, Pedal Edema (anasarca), Other Neurologic/Psychiatric: Alert, Oriented x3 Skin: Warm/Dry, Other (venous statis dermatitis) Results/Procedures Lab Laboratory Tests 09/13/18 04:08 Patient resulted labs reviewed. Assessment/Plan Assessment and Plan Assess & Plan/Chief Complaint Anasarca Diagnosis/Problems Diagnosis/Problems (1) Anasarca Status: Acute Assessment & Plan: Likely multifactorial from chronic alcohol abuse and cor pulmonale Albumin normal on arrival but will check today Fluid restriction of 1500ml (2) A-fib Status: Acute Assessment & Plan: Lovenox for anticoagulation On Diltiazem and Metoprolol for rate control Cardiology consulted appreciate recs Qualifiers: Atrial fibrillation type: chronic Qualified Codes: I48.2 - Chronic atrial fibrillation (3) ETOH abuse Status: Chronic Assessment & Plan: On CIWA protocol (4) Scrotal edema Assessment & Plan: Dr Wilson consulted Appreciate recs Continue diuretics and scrotal support (5) Debility Assessment & Plan: PT/OT consulted Advised need to get out of bed and work on strength May need NH placement if unable to improve functional status Clinical Quality Measures DVT/VTE Risk/Contraindication: Risk Factor Score Per Nursin RFS Level Per Nursing on Admit: 4+=Very High NICOLE GUEVARA MD Sep 13, 2018 08:56
--- NOTE | 2018-09-13 08:58 | Cardiology Progress Note ---
Subjective Date Seen by Provider: Sep 13, 2018 Time Seen by Provider: 08:50 Subjective/Events-last exam Patient is in bed, feeling better, still having edema Review of Systems General: No Chills, No Night Sweats, No Fatigue, No Malaise, No Appetite, No Other HEENT: No Head Aches, No Visual Changes, No Eye Pain, No Ear Pain, No Dysphasia , No Sinus Congestion, No Post Nasal Drip, No Sore Throat, No Other Pulmonary: Dyspnea; No Cough, No Pleuritic Chest Pain, No Other Cardiovascular: Edema; No: Chest Pain, Palpitations, Orthopnea, Paroxysmal Noc. Dyspnea, Lt Headedness, Other Objective-Cardiology Exam Last Set of Vital Signs Vital Signs 09/13/18 08:00 Temp 97.0 Pulse 99 Resp 18 B/P (MAP) 133/63 (86) Pulse Ox 96 O2 Delivery Room Air Capillary Refill : Less Than 3 SecondsLess Than 3 Seconds I&O Intake and Output 09/13/18 00:00 Intake Total 1610 ml Output Total 5325 ml Balance -3715 ml Intake Oral 1610 ml Output Urine Total 5325 ml # Bowel Movements 1 General: Alert, Oriented X3, Cooperative HEENT: Atraumatic, PERRLA Neck: Supple, No JVD, No Thyromegaly Lungs: Clear to Auscultation, Normal Air Movement Heart: Normal S1, Normal S2, No Murmurs, Other (irregular rhythm) Abdomen: Normal Bowel Sounds, Soft, No Tenderness, No Hepatosplenomegaly, No Masses Extremities: No Clubbing, No Cyanosis, Normal Pulses, No Tenderness/Swelling, Other ( anasarca) Skin: No Rashes, No Breakdown, Other (yeast infection in the groin) Neuro: Normal Gait, Normal Speech, Strength at 5/5 X4 Ext, Normal Tone, Sensation Intact Psych/Mental Status: Mental Status NL, Mood NL Results Lab Laboratory Tests 09/13/18 04:08 A/P-Cardiology Admission Diagnosis Acute atrial fibrillation with rapid ventricular response Anasarca Hypertension Alcoholism Assessment/Plan Acute on chronic atrial fibrillation, chronic persistent atrial fibrillation, noncompliant with medication, still borderline tachycardic, continue to monitor Anasarca, extensive peripheral and abdominal edema. secondary to atrial fibrillation and heavy alcoholism, Probably core pulmonale, maintained on Lasix and Aldactone, responding well. Continue to monitor Generalized weakness and loss of energy, significant weight gain secondary to anasarca Dyspnea, still having shortness of breath at this time but reporting improvement Coronary artery disease mild nonobstructive disease by cardiac catheterization in 2016. Continue to monitor Hypertension, controlled, continue to monitor blood pressure Hyperlipidemia, not taking any medication, monitor lipid, hold off on statin due to the heavy alcoholism Diabetes mellitus, followed and managed by Dr. Moreno Obesity, gained over 30 pounds recently with significant fluid retention. Discussed compliance with medication Obstructive sleep apnea, deviated septum, could not tolerate C Pap in the past, had [address] Mcelroy, managed by primary care physician. Arthritis, gouty arthritis. Managed by Dr. Moreno Heavy alcoholism, we had a long discussion about avoiding alcohol and compliance with medication.ed limiting alcohol Mild bilateral carotid stenosis, last ultrasound was done on May 25, 2017 , continue to monitor Peripheral neuropathy, having difficulty functioning. Working on disability Noncompliance with medication, educated in length about compliance Clinical Quality Measures DVT/VTE Risk/Contraindication: Risk Factor Score Per Nursin RFS Level Per Nursing on Admit: 4+=Very High DENNIS OLIVERA MD Sep 13, 2018 08:58
--- NOTE | 2018-09-13 11:18 | Physical Therapy Evaluation ---
PT Evaluation-General Medical Diagnosis Admission Date Sep 09, 2018 at 07:49 Medical Diagnosis: anasarca/a-fib Onset Date: Sep 09, 2018 Therapy Diagnosis Therapy Diagnosis: debility Height/Weight Height (Feet): 6 Height (Inches): 4.00 Weight (Pounds): 314 Weight (Ounces): 0.0 Precautions Precautions/Isolations: Fall Prevention, Standard Precautions Weight Bear Status Right Lower Extremity: Right Weight Bearing/Tolerated Left Lower Extremity: Left Weight Bearing/Tolerated Referral Physician: Cristiane Reason for Referral: Evaluation/Treatment Medical History Pertinent Medical History: Atrial Fib, Alcoholism, DM, HTN, Smoking Additional Medical History per patient, hasn't taken meds at home due to cannot afford them Current History ER secondary to edema bilateral LE and scrotum (60-65# weight gain per family) Reviewed History: Yes Social History Home: Single Level Current Living Status: Spouse Prior/Core FIM Prior Level of Function Therapy Code Descriptions/Definitions Functional [place] Measure: 0=Not Assessed/NA 4=Minimal Assistance 1=Total Assistance 5=Supervision or Setup 2=Maximal Assistance 6=Modified [place] 3=Moderate Assistance 7=Complete [place] Therapy Quality Codes: 6 Independent with activity with or without an assistive device 5 Patient requires set up or clean up by helper. Patient completes activity by themselves 4 Supervision or touching assist (CGA). [place] provide cues , steadying assist 3 The helper provides less than half the effort to complete the activity 2 The helper provides more than half the effort to complete the activity 1 Dependent. The helper does all the effort to complete an activity 7 Patient refused to complete or attempt activity 9 The patient did not perform the activity before the current illness or injury 88 Not attempted due to Medical conditions or safety concerns Functional Abilities and Goals: Independent: Patient completed the activities by him/herself, with or without an assistive device, with no assistance from a helper. Needed Some Help: Patient needed partial assistance from another person to complete activities. Dependent: A helper completed the activities for the patient. Unknown: Not Applicable: Bed Mobility: 6 Transfers (B,C,W/C) (FIM): 6 Gait: 7 Indoor Mobility (Ambulation): Independent Prior Devices Use: Motorized scooter PT Evaluation-Current Subjective Patient agrees to PT. C/o of scrotal pressure due to edema. Pain Numeric Pain Scale: 5-Moderate Pain Location: Soft Tissue Location Body Site: Genital Pain Description: Pressure Objective Patient Orientation: Normal For Age Problem Solving: Good Attachments: Laureano Catheter ROM/Strength ROM Lower Extremities bilateral LE WFL Strength Lower Extremities 4+/5 grossly bilateral LE Integumentary/Posture Integumentary refer to nursing notes Bowel Incontinence: No Bladder Incontinence: Laureano Cath Posture slight trunk flexed posture Neuromuscular (Tone, Coordination, Reflexes) grossly intact Sensory Vision: Functional Hearing: Impaired Sensation Right Lower Extremit: Impaired Sensation Left Lower Extremity: Impaired Transfers Therapy Code Descriptions/Definitions Functional [place] Measure: 0=Not Assessed/NA 4=Minimal Assistance 1=Total Assistance 5=Supervision or Setup 2=Maximal Assistance 6=Modified [place] 3=Moderate Assistance 7=Complete [place] Transfers (B, C, W/C) (FIM): 6 Scootin Rollin Supine to/from Sit: 6 Sit to/from Stand: 6 Gait Mode of Locomotion: Walk Anticipated Mode of Locomotion: Walk Gait (FIM): 6 Distance (FIM): 3=150 ft Distance: 400' Gait Level of Assist: 6 Gait Assistive Device: FWW Comments/Gait Description safe and functional/will need FWW for home use Balance Sitting Static: Normal Sitting Dynamic: Normal Standing Static: Normal Standing Dynamic: Normal Assessment/Needs 63 y.o. male, will be seen x 2 sessions to ensure safe and functional mobility to return to home with family at maximum LOF. Patient is currently limited due to scrotal edema and discomfort. Rehab Potential: Fair Post Rehab Potential-Barriers: compliance PT Short Term Goals Short Term Goals Time Frame: Sep 14, 2018 Transfers (B,C,W/C) (FIM): 6 Gait (FIM): 6 Distance (FIM): 3=150 ft Gait Distance Comment: 500' Gait Level of Assist: 6 Gait Assistive Device: FWW PT Plan Treatment/Plan Treatment Plan: Continue Plan of Care Treatment Plan: Education, Functional Activity [place], Functional Strength, Gait , Safety, Therapeutic Exercise, Transfers Treatment Duration: Sep 14, 2018 Frequency: 2 times per week Estimated Hrs Per Day: .25 hour per day Patient and/or Family Agrees t: Yes Safety Risks/Education Patient Education: Safety Issues Teaching Recipient: Patient Teaching Methods: Discussion Response to Teaching: Verbalize Understanding Discharge Recommendations Therapy D/C Recommendations: Home w/ Family Support Equpiment Recommendations-D/C: Front Wheeled Walker Time/GCodes Time In: 1020 Time Out: 1036 Total Billed Treatment Time: 16 Total Billed Treatment 1 visit EVModC 16 min MARY ELLEN HOFFMAN PT Sep 13, 2018 11:18
[2018-09-13 12:00] VITALS: BP 126/86
--- NOTE | 2018-09-13 12:15 | Occupational Therapy Eval ---
OT Evaluation-General/PLF Medical Diagnosis Admission Date Sep 09, 2018 at 07:49 Medical Diagnosis: anasarca/a-fib Onset Date: Sep 09, 2018 Therapy Diagnosis Therapy Diagnosis: Weakness/swelling Height/Weight Height (Feet): 6 Height (Inches): 4.00 Weight (Pounds): 310 Weight (Ounces): 0.0 Precautions Precautions/Isolations: Fall Prevention, Standard Precautions Safety Interventions: Reorient-PRN Weight Bear Status Weight Bearing Restriction: Weight Bearing/Tolerated Referral Physician: Cristiane Referral Reason: Activity Tolerance, Self Care, Evaluation/Treatment, Strengthening/ROM Medical History Pertinent Medical History: Atrial Fib, Alcoholism, DM, HTN, Smoking Additional Medical History Severe debility, AF, Anasarca, swollen scrotum, swollen LE Current History Pt. began having swelling approximately 1 week or so before coming to ER. Difficulty with breathing. Pt. is on ETOH detox protocol. Reviewed History: Yes Social History Home: Single Level Current Living Status: Spouse Entry Into Home: Level Entry ADL-Prior Level of Function Therapy Code Descriptions/Definitions Functional [place] Measure: 0=Not Assessed/NA 4=Minimal Assistance 1=Total Assistance 5=Supervision or Setup 2=Maximal Assistance 6=Modified [place] 3=Moderate Assistance 7=Complete [place] Therapy Quality Codes: 6 Independent with activity with or without an assistive device 5 Patient requires set up or clean up by helper. Patient completes activity by themselves 4 Supervision or touching assist (CGA). [place] provide cues , steadying assist 3 The helper provides less than half the effort to complete the activity 2 The helper provides more than half the effort to complete the activity 1 Dependent. The helper does all the effort to complete an activity 7 Patient refused to complete or attempt activity 9 The patient did not perform the activity before the current illness or injury 88 Not attempted due to Medical conditions or safety concerns Functional Abilities and Goals: Independent: Patient completed the activities by him/herself, with or without an assistive device, with no assistance from a helper. Needed Some Help: Patient needed partial assistance from another person to complete activities. Dependent: A helper completed the activities for the patient. Unknown: Not Applicable: ADL PLOF Comments Pt's ex spouse in room. States that she lives with him. History is given that pt. does not have stairs or walker. Was fully independent with daily skills, but recently, was requiring assist to don socks. Self Care: Needed Some Help Functional Cognition: Unknown DME/Equipment: Shower DME/Equipment Comments Pt. does not have walker but spouse states that she can get him one. Drive Self: Yes OT Current Status Subjective Pt. does not report pain. However, does report that getting up is difficult due to all of his swelling. Reports that he can't feel the bottom of his feet due to nerve damage. Appearance Pt. in bed. Eating lunch. Mental Status/Objective Patient Orientation: Person, Place, Time, Situation Attachments: Laureano Catheter Current Upper Extremity ROM WFL Upper Extremity Strength WFL ADL-Treatment Therapy Code Descriptions/Definitions Functional [place] Measure: 0=Not Assessed/NA 4=Minimal Assistance 1=Total Assistance 5=Supervision or Setup 2=Maximal Assistance 6=Modified [place] 3=Moderate Assistance 7=Complete [place] Therapy Quality Codes: 6 Independent with activity with or without an assistive device 5 Patient requires set up or clean up by helper. Patient completes activity by themselves 4 Supervision or touching assist (CGA). [place] provide cues , steadying assist 3 The helper provides less than half the effort to complete the activity 2 The helper provides more than half the effort to complete the activity 1 Dependent. The helper does all the effort to complete an activity 7 Patient refused to complete or attempt activity 9 The patient did not perform the activity before the current illness or injury 88 Not attempted due to Medical conditions or safety concerns Eating (FIM): 7 (Pt. feeding self with no difficulty when OT entered room.) Lower Body Dressing (FIM): 1 (Pt. is unable to doff/don slipper socks while seated on side of bed.) Transfers (B, C, W/C) (FIM): 4 (Min assist supine-sit. Pt. has difficulty adjusting self with sheet for positioning of scrotum with movement. Stands at bedside with SBA, without use of walker. OT applies cream to bottom, as redness is noted. Pt. transfers back to bed with SBA. All needs are met and pt. is positioned.) Pt. anxious to finish his lunch. States that he has just finished with PT, but does agree to at least sit on side of bed. Once pt. is back to bed, OT educates him on purpose of OT training. Will bring in AE to practice with him for increased independence with LE ADLs. Pt. agrees to this, but states that he does not have funds to purchase the equipment. OT explains that this facility does not sell it, but merely uses it to assist pt.s to independence with daily tasks. Pt. verbalizes understanding of this. Will make pt. aware of equipment and uses of it, before assessment of acquiring said equipment. Education OT Patient Education: Correct positioning, Modified ADL techniques, Progress toward Goal/Update tx plan, Purpose of tx/functional activities, Reviewed precautions, Rehab process, Transfer techniques, Use of adapted equipment Teaching Recipient: Patient Teaching Methods: Demonstration, Discussion Response to Teaching: Verbalize Understanding, Return Demonstration OT Short Term Goals Short Term Goals Time Frame: Sep 20, 2018 Eating(FIM): 7 Grooming(FIM): 6 Bathing(FIM): 4 Upper Body Dressing(FIM): 5 Lower Body Dressing(FIM): 4 Toileting(FIM): 5 Transfers (B,C,W/C) (FIM): 5 Toilet/Commode Transfer(FIM): 5 Shower Transfer(FIM): 4 Additional Short Term Goals: 1-Demonstrate ADL Tasks, 2-Verbalize Understanding , 3-ImproveStrength/[place] 1=Demonstrate adherence to instructed precautions during ADL tasks. 2=Patient will verbalize/demonstrate understanding of assistive devices/ modifications for ADL. 3=Patient will improve strength/tolerance for activity to enable patient to perform ADL's. OT Correction Goals Correction Goals Time Frame: Sep 27, 2018 Eating (FIM): 7 Grooming(FIM): 6 Bathing(FIM): 6 Upper Body Dressing(FIM): 6 Lower Body Dressing(FIM): 6 Toileting(FIM): 6 Transfers (B,C,W/C) (FIM): 6 Toilet/Commode Transfer(FIM): 6 Shower Transfer(FIM): 5 Additional Goals: 1-Demonstrate ADL Tasks, 2-Verbalize Understanding, 3- ImproveStrength/[place] 1=Demonstrate adherence to instructed precautions during ADL tasks. 2=Patient will verbalize/demonstrate understanding of assistive devices/ modifications for ADL. 3=Patient will improve strength/tolerance for activity to enable patient to perform ADL's. OT Education/Plan Problem List/Assessment Assessment: Decreased Activ Tolerance, Dependent Transfers, Impaired Bed Mobility, Impaired I ADL's, Impaired Self-Care Skills Discharge Recommendations Plan/Recommendations: Continue POC Therapy D/C Recommendations: Home w/ Family Support, Occupational Therapy Home Care Equpiment Recommendations-D/C: Bath Chair, Hip Kit Treatment Plan/Plan of Care Treatment,Training & Education: Yes Patient would benefit from OT for education, treatment and training to promote independence in ADL's, mobility, safety and/or upper extremity function for ADL' s. Plan of Care: ADL Retraining, Functional Mobility, UE Funct Exercise/Act Treatment Duration: Sep 27, 2018 Frequency: 5 times per week Estimated Hrs Per Day: .5 hour per day Agreement: Yes Rehab Potential: Fair Time/GCodes Start Time: 11:46 Stop Time: 12:01 Total Time Billed (hr/min): 15 Billed Treatment Time 1, KAYLENE SOTELO OT Sep 13, 2018 12:15
--- NOTE | 2018-09-13 13:23 | CONSULTATION REPORT ---
DATE OF SERVICE: 09/13/2018 ATTENDING PHYSICIAN: Dr. Sauer. SUMMARY: A 63-year-old white male with multiple medical problems and not taking good care of himself, was admitted with anasarca, edema of the extremities up to the belly and involving the scrotum and the penile skin. He is on good diuresis with good results. Has a catheter in, draining clear urine. His scrotum is swollen, but soft edema. No hydrocele. ASSESSMENT: Scrotal edema secondary to anasarca. PLAN: Continue present management. There is no help surgically. Job ID: [id number] DocumentID: [id number] Dictated Date: 09/13/2018 10:22:57 Head Of Digital Date: 09/13/2018 13:22:38 Dictated By: ESTHER SOLER MD
[2018-09-13 16:00] VITALS: BP 127/87
[2018-09-13] MEDS: HYDROcodone/APAP 5 MG/325 MG (LORTAB) TAB PO PRN ×2 (16:54→21:10)
[2018-09-13] MEDS: SENNA W/DOCUSATE (SENOKOT S) TABLET PO PRN (16:54)
[2018-09-13 19:18] VITALS: BP 111/77
[2018-09-13] MEDS: MELATONIN 3 MG TABLET PO PRN (21:12)
[2018-09-13 23:56] VITALS: BP 131/84
[2018-09-14] MEDS: HYDROcodone/APAP 5 MG/325 MG (LORTAB) TAB PO PRN (02:46)
[2018-09-14 03:57] VITALS: BP 139/92
[2018-09-14 04:50] LABS: BASOPHILS % (AUTO) 0 % (0-10); EOSINOPHILS # (AUTO) 0.2 10^3/uL (0.0-0.3); EOSINOPHILS % (AUTO) 3 % (0-10); HEMATOCRIT 41 % (40-54); HEMOGLOBIN 13.7 G/DL (13.3-17.7); LYMPHOCYTES # (AUTO) 1.6 X 10^3 (1.0-4.0); LYMPHOCYTES % (AUTO) 21 % (12-44); MEAN CORPUSCULAR HEMOGLOBIN 34 PG (25-34); MEAN CORPUSCULAR HGB CONC 34 G/DL (32-36); MEAN CORPUSCULAR VOLUME 100 FL (80-99); MEAN PLATELET VOLUME 10.2 FL (7.4-10.4); MONOCYTES # (AUTO) 1.2 X 10^3 (0.0-1.0); MONOCYTES % (AUTO) 16 % (0-12); NEUTROPHILS # (AUTO) 4.7 X 10^3 (1.8-7.8); NEUTROPHILS % (AUTO) 61 % (42-75); PLATELET COUNT 166 10^3/uL (130-400); RED CELL DISTRIBUTION WIDTH 14.7 % (10.0-14.5); WHITE BLOOD COUNT 7.7 10^3/uL (4.3-11.0)
[2018-09-14 05:09] LABS: BUN/CREATININE RATIO 17; CALCIUM 9.7 MG/DL (8.5-10.1); CARBON DIOXIDE 24 MMOL/L (21-32); CHLORIDE 103 MMOL/L (98-107); CREATININE SERUM 0.75 MG/DL (0.60-1.30); GFR ESTIMATED > 60; GLUCOSE 121 MG/DL (70-105); MAGNESIUM 1.4 MG/DL (1.8-2.4); PHOSPHORUS 3.9 MG/DL (2.3-4.7); POTASSIUM 4.2 MMOL/L (3.6-5.0); SODIUM 138 MMOL/L (135-145)
[2018-09-14] MEDS: FUROSEMIDE 40 MG/4 ML INJ (LASIX) IVP SCH (06:40)
[2018-09-14] MEDS: SPIRONOLACTONE 25 MG (ALDACTONE) TAB PO SCH (06:40)
[2018-09-14 07:57] VITALS: BP 132/81
[2018-09-14] MEDS: MAGNESIUM OXIDE (MAG-OX)400 MG TAB PO SCH (08:15)
--- NOTE | 2018-09-14 08:15 | Cardiology Progress Note ---
Subjective Date Seen by Provider: Sep 14, 2018 Time Seen by Provider: 08:11 Subjective/Events-last exam Patient sitting up in bed. Continues to complain of scrotal edema. Denies any chest pain or dyspnea. Objective-Cardiology Exam Last Set of Vital Signs Vital Signs 09/14/18 07:57 Temp 97.6 Pulse 101 Resp 18 B/P (MAP) 132/81 (98) Pulse Ox 96 O2 Delivery Room Air Capillary Refill : Less Than 3 SecondsLess Than 3 Seconds I&O Intake and Output 09/14/18 00:00 Intake Total 1250 ml Output Total 5025 ml Balance -3775 ml Intake Oral 1250 ml Output Urine Total 5025 ml General: Alert, Oriented X3, Cooperative HEENT: Atraumatic, PERRLA Neck: Supple, No JVD, No Thyromegaly Lungs: Clear to Auscultation, Normal Air Movement Heart: Normal S1, Normal S2, No Murmurs, Other (irregular rhythm) Abdomen: Normal Bowel Sounds, Soft, No Tenderness, No Hepatosplenomegaly, No Masses Extremities: No Clubbing, No Cyanosis, Normal Pulses, No Tenderness/Swelling, Other ( anasarca) Skin: No Rashes, No Breakdown, Other (yeast infection in the groin) Neuro: Normal Gait, Normal Speech, Strength at 5/5 X4 Ext, Normal Tone, Sensation Intact Psych/Mental Status: Mental Status NL, Mood NL Results Lab Laboratory Tests 09/14/18 04:20 A/P-Cardiology Admission Diagnosis Acute atrial fibrillation with rapid ventricular response Anasarca Hypertension Alcoholism Assessment/Plan Acute on chronic atrial fibrillation, chronic persistent atrial fibrillation, noncompliant with medication, still borderline tachycardic, continue to monitor Anasarca, extensive peripheral and abdominal edema. secondary to atrial fibrillation and heavy alcoholism, Probably core pulmonale, maintained on Lasix and Aldactone, responding well. Continue to monitor Generalized weakness and loss of energy, significant weight gain secondary to anasarca, improving. Dyspnea, improved, continue to monitor. Coronary artery disease mild nonobstructive disease by cardiac catheterization in 2015. Continue to monitor Hypertension, controlled, continue to monitor blood pressure Hyperlipidemia, not taking any medication, monitor lipid, hold off on statin due to the heavy alcoholism Diabetes mellitus, followed and managed by Dr. Moreno Obesity, gained over 30 pounds recently with significant fluid retention. Discussed compliance with medication Obstructive sleep apnea, deviated septum, could not tolerate C Pap in the past, had [address] Mcelroy, managed by primary care physician. Arthritis, gouty arthritis. Managed by Dr. Moreno Heavy alcoholism, we had a long discussion about avoiding alcohol and compliance with medication.ed limiting alcohol Mild bilateral carotid stenosis, last ultrasound was done on May 25, 2017 , continue to monitor Peripheral neuropathy, having difficulty functioning. Working on disability Noncompliance with medication, educated in length about compliance Clinical Quality Measures DVT/VTE Risk/Contraindication: Risk Factor Score Per Nursin RFS Level Per Nursing on Admit: 4+=Very High MASSIEL ADAMSON Sep 14, 2018 08:15
[2018-09-14] MEDS: FLUTICASONE NASAL SPRAY (FLONASE) 16 GM BTL NS SCH (08:56)
[2018-09-14] MEDS: ENOXAPARIN 300 MG/3 ML (LOVENOX) MULTI-DOSE VIAL SQ SCH (08:57)
[2018-09-14] MEDS: DOCUSATE SODIUM 100 MG (COLACE) CAP PO SCH (08:58)
[2018-09-14] MEDS: DILTIAZEM 240 MG (CARDIZEM CD) CAP PO SCH (08:58)
--- NOTE | 2018-09-14 09:22 | Physical Therapy Progress Note ---
Therapy Progress Note Patient is up ad ming in room and reports he is going home today. PT to dismiss patient from services at this time due to modified independent to independent LOF. MARY ELLEN HOFFMAN PT Sep 14, 2018 09:22
[2018-09-14] MEDS ORDERED: DILT240C86 PO (10:06)
[2018-09-14] MEDS ORDERED: SPIR25TA5 PO (10:06)
[2018-09-14] MEDS ORDERED: RIVA20TA PO (10:06)
[2018-09-14] MEDS ORDERED: METO-387 PO (10:06)
[2018-09-14] MEDS ORDERED: FURO-124 PO (10:06)
--- NOTE | 2018-09-14 10:08 | Discharge Inst-Simple/Standard ---
Discharge Inst-Standard Discharge Medications New, Converted or Re-Newed RX: Transmitted to Pharmacy Patient Instructions/Follow Up Plan of Care/Instructions/FU: Please continue to take your medications as written. Please follow up with Dr Campos in [address] Coreas on 09/16 at 1140am in [place]. Please quit drinking alcohol. Activity as Tolerated: Yes Discharge Diet: Low Sodium Diet Return to The Hospital For: Shortness of breath, chest pain, worsening swelling, if you feel you are getting worse. Planned Outpatient Orders/Ref. Pneu Vac Indicated: Yes NICOLE GUEVARA MD Sep 14, 2018 10:08
--- NOTE | 2018-09-14 10:12 | Discharge Summary-Hospitalist ---
Diagnosis/Chief Complaint Date of Admission Sep 09, 2018 at 07:49 Date of Discharge Discharge Date: Sep 14, 2018 Admission Diagnosis Assessment: Anasarca AF Obesity Severe debility ETOHism Plan: ETOH withdrawal protocol Lasix Cardiology and Pulmonology evaluations are appreciated Discharge Diagnosis (1) Anasarca Status: Acute Assessment & Plan: Likely multifactorial from chronic alcohol abuse and cor pulmonale Albumin normal on arrival but will check today Fluid restriction of 1500ml (2) A-fib Status: Acute Assessment & Plan: Lovenox for anticoagulation On Diltiazem and Metoprolol for rate control Cardiology consulted appreciate recs (3) ETOH abuse Status: Chronic Assessment & Plan: On CIWA protocol (4) Scrotal edema Assessment & Plan: Dr Wilson consulted Appreciate recs Continue diuretics and scrotal support (5) Debility Assessment & Plan: PT/OT consulted Advised need to get out of bed and work on strength May need NH placement if unable to improve functional status Discharge Summary Discharge Physical Exam Allergies: Coded Allergies: NKANo Known Allergies (Verified Allergy, Unknown, 07/17/06) Vitals & I&Os Vital Signs Date Time Temp Pulse Resp B/P (MAP) Pulse Ox O2 Delivery O2 Flow Rate FiO2 09/14/18 09:00 95 Room Air 09/14/18 07:57 97.6 101 18 132/81 (98) Hospital Course Labs (last 24 hrs) Laboratory Tests 09/13/18 11:15: Glucometer 107 09/13/18 16:44: Glucometer 108 09/13/18 21:14: Glucometer 120H 09/14/18 04:20: White Blood Count 7.7, Red Blood Count 4.08L, Hemoglobin 13.7, Hematocrit 41, Mean Corpuscular Volume 100H, Mean Corpuscular Hemoglobin 34, Mean Corpuscular Hemoglobin Concent 34, Red Cell Distribution Width 14.7H, Platelet Count 166, Mean Platelet Volume 10.2, Neutrophils (%) (Auto) 61, Lymphocytes (%) (Auto) 21 , Monocytes (%) (Auto) 16H, Eosinophils (%) (Auto) 3, Basophils (%) (Auto) 0, Neutrophils # (Auto) 4.7, Lymphocytes # (Auto) 1.6, Monocytes # (Auto) 1.2H, Eosinophils # (Auto) 0.2, Basophils # (Auto) 0.0, Sodium Level 138, Potassium Level 4.2, Chloride Level 103, Carbon Dioxide Level 24, Anion Gap 11, Blood Urea Nitrogen 13, Creatinine 0.75, Estimat Glomerular Filtration Rate > 60, BUN/ Creatinine Ratio 17, Glucose Level 121H, Calcium Level 9.7, Phosphorus Level 3.9 , Magnesium Level 1.4L Microbiology 09/09/18 MRSA Screen - Final, Complete Patient resulted labs reviewed. Pending Labs Laboratory Tests 09/14/18 04:20: White Blood Count 7.7, Red Blood Count 4.08, Hemoglobin 13.7, Hematocrit 41, Mean Corpuscular Volume 100, Mean Corpuscular Hemoglobin 34, Mean Corpuscular Hemoglobin Concent 34, Red Cell Distribution Width 14.7, Platelet Count 166, Mean Platelet Volume 10.2, Neutrophils (%) (Auto) 61, Lymphocytes (%) (Auto) 21 , Monocytes (%) (Auto) 16, Eosinophils (%) (Auto) 3, Basophils (%) (Auto) 0, Neutrophils # (Auto) 4.7, Lymphocytes # (Auto) 1.6, Monocytes # (Auto) 1.2, Eosinophils # (Auto) 0.2, Basophils # (Auto) 0.0, Sodium Level 138, Potassium Level 4.2, Chloride Level 103, Carbon Dioxide Level 24, Anion Gap 11, Blood Urea Nitrogen 13, Creatinine 0.75, Estimat Glomerular Filtration Rate > 60, BUN/ Creatinine Ratio 17, Glucose Level 121, Calcium Level 9.7, Phosphorus Level 3.9 , Magnesium Level 1.4 Discharge Home Medications: Active Scripts Active Xarelto (Rivaroxaban) 20 Mg Tablet 20 Mg PO DAILY Lasix (Furosemide) 40 Mg Tablet 40 Mg PO DAILY Spironolactone 25 Mg Tablet 25 Mg PO LASIXBID Metoprolol Succinate 25 Mg Tab.er.24h 25 Mg PO DAILY Cardizem Cd (Diltiazem HCl) 240 Mg Cap.er.24h 240 Mg PO DAILY LAST FILLED #90 12-28-17 Reported Flonase Allergy Relief (Fluticasone Propionate) 9.9 Ml [place].susp 2 [place] NS DAILY LAST FILLED 12-28-17 Afrin (Oxymetazoline HCl) 30 Ml [place] 2 Sprays NS BID PRN Pepto-Bismol (Bismuth Subsalicylate) 262 Mg/15 Ml Oral.susp 30 Ml PO TID PRN Laxative (Bisacodyl) 5 Mg Tablet 10 Mg PO BID PRN Metformin HCl 500 Mg Tablet 1,000 Mg PO BID LAST FILLED #360 12-28-17 Metoprolol Succinate 200 Mg Tab.er.24h 200 Mg PO DAILY LAST FILLED #90 12-28-17 Rosuvastatin Calcium 10 Mg Tablet 10 Mg PO HS LAST FILLED #90 01-05-18 Cetirizine HCl 10 Mg Tablet 10 Mg PO DAILY Allopurinol 300 Mg Tablet 300 Mg PO DAILY Januvia (Sitagliptin Phosphate) 100 Mg Tablet 100 Mg PO DAILY LAST FILLED #90 01-05-18 Mic[place]is Hct 80-25 mg Tablet (Telmisartan/Hydrochlorothiazid) 1 Each Tablet 1 Tab PO DAILY LAST FILLED #90 12-26-17 Pradaxa (Dabigatran Etexilate Mesylate) 150 Mg Capsule 150 Mg PO BID LAST FILLED 90 DAYS 09-18-17 Instructions to patient/family Please see electronic discharge instructions given to patient. Clinical Quality Measures DVT/VTE Risk/Contraindication: Risk Factor Score Per Nursin RFS Level Per Nursing on Admit: 4+=Very High Problem Qualifiers (1) A-fib: Atrial fibrillation type: chronic Qualified Codes: I48.2 - Chronic atrial fibrillation NICOLE GUEVARA MD Sep 14, 2018 10:12
[2018-09-14 11:40] VITALS: BP 132/81
== END 2018-09-14 11:40 | disposition home or self-care (01) | DRG 308 ==
LOC: EDUNIT# 05:40 → ER 05:48 → ICU 07:49 → 4TH 09-12 08:22
PROVIDERS: ADMIT Internal Medicine; ATTEND Internal Medicine
DX: I48.1 Persistent atrial fibrillation (principal); I11.0 Hypertensive heart disease with heart failure; I50.43 Acute on chronic combined systolic (congestive) and diastolic (congestive) heart failure; R60.1 Generalized edema; N50.89 Other specified disorders of the male genital organs; R06.03 Acute respiratory distress; E87.2 Acidosis; F10.239 Alcohol dependence with withdrawal, unspecified; E66.01 Morbid (severe) obesity due to excess calories; E11.42 Type 2 diabetes mellitus with diabetic polyneuropathy; I25.10 Atherosclerotic heart disease of native coronary artery without angina pectoris; E78.00 Pure hypercholesterolemia, unspecified; F17.210 Nicotine dependence, cigarettes, uncomplicated; G47.33 Obstructive sleep apnea (adult) (pediatric); I87.8 Other specified disorders of veins; R53.1 Weakness; M19.91 Primary osteoarthritis, unspecified site; M10.9 Gout, unspecified; I65.23 Occlusion and stenosis of bilateral carotid arteries; F41.9 Anxiety disorder, unspecified; F32.9 Major depressive disorder, single episode, unspecified; R53.81 Other malaise; R10.13 Epigastric pain; E78.5 Hyperlipidemia, unspecified; Z91.120 Patient's intentional underdosing of medication regimen due to financial hardship
CPT/HCPCS: 36415; 71045; 74176; 80048; 80053; 80320; 81000; 82040; 82805; 82962; 83735; 83880; 84100; 85025; 87081; 93005; 93041; 93306; 96374

== ENCOUNTER → 2018-10-14 | Outpatient (CLI) | payer SELFPAY ==
[~2018-10-14] MED LIST changes: +BISA5TAB49 PO; +BISM262O27 PO; +FLUT9.9S NS; +FURO-124 PO; +INDO50CA11 PO; +METO-387 PO; +OXYM30SP NS; +RIVA20TA2 PO; +SPIR25TA5 PO
[2018-10-14 11:04] LABS: ALANINE AMINOTRANSFERASE 26 U/L (0-55); ALBUMIN 4.5 GM/DL (3.2-4.5); ALKALINE PHOSPHATASE 117 U/L (40-136); BILIRUBIN,TOTAL 1.1 MG/DL (0.1-1.0); BUN/CREATININE RATIO 23; CALCIUM 10.5 MG/DL (8.5-10.1); CARBON DIOXIDE 19 MMOL/L (21-32); CHLORIDE 102 MMOL/L (98-107); CHOLESTEROL 245 MG/DL (< 200); CREATININE SERUM 0.79 MG/DL (0.60-1.30); GFR ESTIMATED > 60; GLUCOSE 157 MG/DL (70-105); HDL CHOLESTEROL 42 MG/DL (40-60); POTASSIUM 4.5 MMOL/L (3.6-5.0); SODIUM 133 MMOL/L (135-145); TOTAL PROTEIN 8.7 GM/DL (6.4-8.2); TRIGLYCERIDES 152 MG/DL (<150); VLDL CHOLESTEROL 30 MG/DL (5-40)
== END ==
LOC: LAB 10:23
PROVIDERS: ATTEND Internal Medicine Cardiovascular Disease
DX: I10 Essential (primary) hypertension (principal); E78.2 Mixed hyperlipidemia; I48.1 Persistent atrial fibrillation; R06.09 Other forms of dyspnea; Z72.0 Tobacco use
CPT/HCPCS: 36415; 80053; 80061

== ENCOUNTER → 2021-08-07 | Outpatient (CLI) | payer MEDICARE ==
[~2021-08-07] MED LIST changes: +BISA-89 PO; -BISA5TAB49 PO; +ESCI20TA39 PO; -ESCI20TA45 PO; -FOLI1TAB24 PO; +FOLI1TAB33 PO; -INDO50CA11 PO; +INDO50CA82 PO; -METO-387 PO; -METO-395 PO; +MTP25TSR PO; -OXYM30SP NS; +OXYM30SP25 NS; -ROSU10TA27 PO; +ROSU10TA28 PO
== END ==
LOC: CARD 09:30
PROVIDERS: ATTEND Internal Medicine Cardiovascular Disease
DX: I08.1 Rheumatic disorders of both mitral and tricuspid valves (principal); I11.9 Hypertensive heart disease without heart failure; I25.10 Atherosclerotic heart disease of native coronary artery without angina pectoris
CPT/HCPCS: 93306

== ENCOUNTER → 2022-05-22 | Outpatient (CLI) | payer MEDICARE ==
[~2022-05-22] MED LIST changes: +CATHETER FLUSH 10 ML SYR IVP PRN; +REGADENOSON 0.4 MG/5 ML SYR (LEXISCAN) IV ONE
[2022-05-22 07:55] VITALS: BP 131/86
--- NOTE | 2022-05-22 12:58 | Cardiology Stress Test Report ---
Stress Test Report Date of Procedure/Referring: Date of Procedure: May 22, 2022 [facility] Admitting Physician Admitting Physician: Attending Physician: Melanie Dial Baseline Heart Rate: 84 Baseline Blood Pressure: Blood Pressure Systolic: 131 Blood Pressure Diastolic: 86 Baseline Vitals Vital Signs Date Time Temp Pulse Resp B/P (MAP) Pulse Ox O2 Delivery O2 Flow Rate FiO2 05/22/22 07:55 84 131/86 (101) Baseline EKG: Baseline EKG: A fib Summary After explaining the procedure to the patient, he signed a consent and then brought to the stress nuclear laboratory. Patient received 0.4 mg Lexiscan for stress test, ECG, heart rate and blood pressure were monitored continuously. Resting and stress dose of radio tracer were injected, imaging was acquired and reviewed in short axis, horizontal long axis and vertical long axis views. TID: 1.07 SSS: 16 SDS: 4 EF: 40 1. Patient tolerated Lexiscan well 2. Baseline atrial fibrillation persisted during test 3. Reversible ischemia involving the whole inferior wall and inferoseptum and inferolateral wall 4. Diffuse left ventricular hypokinesia with ejection fraction 40%, gated images are unreliable due to underlying atrial fibrillation Copy Copies To 1: [facility] [place] DENNIS OLIVERA MD May 22, 2022 12:58
== END ==
LOC: CARD 07:15
PROVIDERS: ATTEND Physician Assistant
DX: I50.9 Heart failure, unspecified (principal); I25.9 Chronic ischemic heart disease, unspecified; I51.89 Other ill-defined heart diseases
CPT/HCPCS: 78452; 93017; A9502

== ENCOUNTER 2022-06-04 09:00 | Day surgery (SDC) | payer MEDICARE ==
[2022-06-04] VITALS (12 sets, daily range): BP systolic 94–121; BP diastolic 63–88
[~2022-06-04] VITALS: Ht 193 cm; Wt 99.3 kg
--- NOTE | 2022-06-04 07:39 | Diagnostic Imaging Report ---
INDICATION: Hypertensive, coronary disease. Compared 09/12/2018. FINDINGS: The lungs are clear. No failure, effusion or pneumothorax. IMPRESSION: No acute appearing abnormality. Dictated by: Dictated on workstation # [id number]
[2022-06-04 07:45] LABS: HEMATOCRIT 42 % (40-54); HEMOGLOBIN 14.7 g/dL (13.3-17.7); MEAN CORPUSCULAR HEMOGLOBIN 34 pg (25-34); MEAN CORPUSCULAR HGB CONC 35 g/dL (32-36); MEAN CORPUSCULAR VOLUME 98 fL (80-99); MEAN PLATELET VOLUME 9.2 fL (9.0-12.2); PLATELET COUNT 198 10^3/uL (130-400); WHITE BLOOD COUNT 8.7 10^3/uL (4.3-11.0)
[2022-06-04 07:58] LABS: INR 1.2 (0.8-1.4); PROTHROMBIN TIME PATIENT 15.5 SEC (12.2-14.7)
[2022-06-04 08:10] LABS: ALANINE AMINOTRANSFERASE 32 U/L (0-55); ALBUMIN 4.7 GM/DL (3.2-4.5); ALKALINE PHOSPHATASE 70 U/L (40-136); BILIRUBIN,TOTAL 0.6 MG/DL (0.1-1.0); BUN/CREATININE RATIO 23; CARBON DIOXIDE 21 MMOL/L (21-32); CHLORIDE 102 MMOL/L (98-107); CHOLESTEROL 144 MG/DL (< 200); CREATININE SERUM 0.86 MG/DL (0.60-1.30); GFR ESTIMATED 96; GLUCOSE 159 MG/DL (70-105); HDL CHOLESTEROL 63 MG/DL (40-60); POTASSIUM 4.2 MMOL/L (3.6-5.0); SODIUM 134 MMOL/L (135-145); TOTAL PROTEIN 7.8 GM/DL (6.4-8.2); TRIGLYCERIDES 54 MG/DL (<150); VLDL CHOLESTEROL 11 MG/DL (5-40)
--- NOTE | 2022-06-04 08:59 | Cardiac Procedure Note-CS/ASA ---
Pre-Procedure Note Pre-Op Procedure Note Date of Available H&P: May 27, 2022 Date H&P Reviewed: Jun 04, 2022 Time H&P Reviewed: 08:58 History & Physical: H&P Reviewed, Patient Examed, No changes noted Pre-Operative Diagnosis: CAD Conscious Sedation Pre-Proced Time 08:58 ASA Score 3 For ASA 3 and 4: Consider anesthesia and medical clearance. Also, for patients with a history of failed moderate sedation consider anesthesia. Airway Lungs Heart ASA score ASA 1: a normal healthy patient ASA 2: a patient with a mild systemic disease (mid diabetes, controlled hypertension, obesity x ASA 3: a patient with a severe systemic disease that limits activity (angina, COPD, prior Myocardial infarction) ASA 4: a patient with an incapacitating disease that is a constant threat to life (CHF, renal failure) ASA 5: a moribund patient not expected to survive 24 hrs. (ruptured aneurysm) ASA 6: a declared brain- patient whose organs are being harvested. For emergent operations, add the letter E after the classification Mallampati Classification Grade 3 Sedation Plan Analgesia, Amnesia, Plan communicated to team members, Discussed options with patient/fam, Discussed risks with patient/fam The patient is an appropriate candidate to undergo the planned procedure, sedation, and anesthesia. The patient immediately re-assessed prior to indication. DENNIS OLIVERA MD Jun 04, 2022 08:59
[~2022-06-04 09:00] MED LIST changes: +ATOR40TA70 PO; -CATHETER FLUSH 10 ML SYR IVP PRN; +DILT240C90 PO; +EMPA10TA PO; +HEParin (CATH LAB) 2,000 ML IV ONE; +HEParin 1000 UNIT/ML (10ML VIAL) FOR BOLUS ONE; +LIDOCAINE 1% INJ 30 ML (XYLOCAINE) VIAL ONE; +LOSA25TA41 PO; +MELA10CA2 PO; +METF-398 PO; +METO-352 PO; +MIDAZOLAM 5 MG/5 ML (VERSED) VIAL ONE; +MULT-1136 PO; +NITRO DRIP 25000 MCG/D5W 250 ML IV ONE; +NS IV 1000 ML 1,000 ML IV SCH; +NS IV 1000 ML 1,000 ML ONE; +PHEN30SP4 NS; -REGADENOSON 0.4 MG/5 ML SYR (LEXISCAN) IV ONE; +RIVA20TA PO; +VERAPAMIL 5 MG/2 ML (CALAN) VIAL IV ONE; +fentaNYL INJ 100 MCG/2 ML AMP ONE
[2022-06-04] MEDS ORDERED: methylPREDNISolone 125 MG (Solu-MEDROL) VIAL ONE (09:01)
[2022-06-04] MEDS ORDERED: diphenhydrAMINE 50 MG/ML INJ (BENADRYL) ONE (09:01)
[2022-06-04] MEDS ORDERED: EPTIFIBATIDE BOLUS 20 ML IV ONE (09:46)
[2022-06-04] MEDS ORDERED: ASPIRIN 325 MG (5 GR) TABLET ONE (10:05)
[2022-06-04] MEDS ORDERED: CLOPIDOGREL 300 MG (PLAVIX) TABLET PO ONE (10:05)
[2022-06-04] MEDS ORDERED: PATIENT MAY USE OWN MEDS, ALL PO SCH (10:15)
[2022-06-04] MEDS ORDERED: NS IV 1000 ML 1,000 ML IV SCH (10:15)
--- NOTE | 2022-06-04 10:20 | Cardiac Cath Report ---
Cardiac Cath Report Physician (s)/Fern Gatherer (s) Physician DENNIS OLIVERA MD Pre-Procedure Diagnosis Pre-Procedure Diagnosis: CAD Post-Procedure Note Procedure Start Date: Jun 04, 2022 Name of Procedure: Left heart catheterization Stenting to the circumflex artery Findings/Procedure Note PROCEDURE NOTE: 66-year-old gentleman with coronary artery disease, atrial fibrillation, had an abnormal stress test and scheduled for cardiac catheterization possible PTCA. After explaining the procedure to the patient, all pros and cons were explained, all questions were answered. The patient signed the consent and then he was placed in the cardiac catheterization laboratory. Groin was prepped in SL fashion local anesthesia was used. Sheath placed in the right radial artery, Flynn catheter was advanced to the left ventricular cavity, pressure was measured, pullback LV to aorta was done, engage the right and left coronary system, angiogram was done. Patient has total occlusion at the mid to distal circumflex artery, decision was made to proceed with percutaneous intervention. Patient received a total of 6000 units of heparin, double bolus Integrilin I used initially EBU 3.5 guide, was not engaged well, could not advance the wire then used EBU 4 guide, engage the left main and advanced the wire, upon advancement of the balloon and did balloon angioplasty to the mid I lost the guide position and felt that it will not engage well subsequently I used a FL 4.0 guide Plaisted at the left main and advanced whisper wire parked distally did balloon angioplasty to the mid and distal circumflex artery then advanced the laura wire using a BMW and parked distally and advanced over the BMW a latasha point Blossom stent 2.5 x 28 mm deployed carefully at the mid circumflex artery, angiogram showed excellent results then I noticed there was significant lesion in the proximal circumflex artery and I proceeded with deployment of a second stent at the proximal circumflex artery using latasha point Blossom 2.75 x 23 mm deployed with excellent results. At the end of the procedure the sheath was removed. Vascular band was used FINDINGS: Hemodynamics LV 100/11, end-diastolic pressure of 11 Aorta 103/73 mean of 57 ANATOMY: Left Main is free of obstructive disease Left Anterior Descending has 50% stenosis at the proximal portion, 50% stenosis at the mid and 50 to 60% stenosis distally. Left Circumflex has 70% stenosis proximally with successful deployment of latasha point Blossom 2.75 x 23 mm stent with 0 residual stenosis and at the midportion the artery was totally occluded receiving collaterals from the right, successful complex intervention with deployment of latasha point Blossom 2.5 x 28 mm with excellent results, 0% residual stenosis, KELLY flow preintervention was 1 and KELLY flow post intervention was 3 Right Coronary Artery is dominant artery, moderate in size with 40% stenosis proximally, giving collaterals to the circumflex artery. LV Gram was not done, pressure was measured PERCUTANEOUS INTERVENTION: Pre stenosis Proximal circumflex 70% stenosis, mid circumflex 100% stenosis Post Stenosis Proximal circumflex 0% residual, mid circumflex 0% residual Pre KELLY flow 1 Post KELLY flow 3 Dominance right coronary artery CONCLUSION: 1. Severe stenosis in the proximal circumflex artery with total occlusion at the mid portion, complex intervention with deployment of 2 stents proximally 2.75 x 23 mm followed by 2.5 x 28 mm with excellent result with no residual stenosis 2. 3 lesions in the LAD 50% proximal, 50% mid and 50 to 60% distal, we will continue monitoring and will consider repeating stress test in 6 months 3. Dominant right coronary artery with mild disease nonobstructive disease 4. Normal left ventricular end-diastolic pressure DISCUSSION AND RECOMMENDATION: Patient was started on aspirin and Plavix. Continue to monitor Anesthesia Type: Conscious Sedation Estimated blood loss (mL): 30 ml Contrast Amount: 160 ml Total Radiation Dose: 1509 mGy Post-Procedure Diagnosis Post-operative diagnosis: Chest pain Coronary artery disease Atrial fibrillation Hypertension Hyperlipidemia DENNIS OLIVERA MD Jun 04, 2022 10:20
[2022-06-04] MEDS ORDERED: MELATONIN 10 MG TABLET PO PRN (11:45)
[2022-06-04] MEDS ORDERED: CLOP75TA28 PO (13:07)
[2022-06-04] MEDS ORDERED: METF-398 PO (13:07)
[2022-06-04] MEDS ORDERED: ASPI-1238 PO (13:07)
--- NOTE | 2022-06-04 13:07 | Discharge Inst-Post CATH ---
Discharge Inst-CATH/EP Problems Reviewed?: Yes Post Cardiac Cath/EP D/C Inst Follow Up/Plan Hold Xarelto for 24 hours Hold metformin for [address] Campos's office in 2 weeks <b>CARDIAC CATH/EP PROCEDURE DISCHARGE INSTRUCTIONS</b> ACTIVITY * Go Home directly and rest. * Limit activity of the leg (or wrist if it was used) for 7 days including aerobics, swimming, jogging, bicycling, etc. * Restrict stair-climbing for 7 days if possible, if not, climb up with your non-cath leg, then bring together on the same step. * Avoid lifting, pushing, pulling or excessive movement of the affected extremity for 7 days. * Customary sexual activity may be resumed after 2 days-use caution not to use a position that strains or causes pain to the affected extremity. * No driving for 24 hours. * NO SMOKING. * Avoid straining for bowel movements for 7 days. * Gentle walking on level ground is allowed. * Returning to work will depend on the type of procedure and the results. Your doctor will discuss this with you. CALL YOUR DOCTOR FOR ANY OF THE FOLLOWING: *If bleeding from the puncture site occurs- Apply gentle pressure to site with clean cloth and call your doctor or EMS. * If a knot or lump forms under the skin, increases in size, or causes pain. * If bruising appears to be worsening or moving further down your leg instead of disappearing. * Temperature above 101 F. CARE OF YOUR GROIN INCISION; * Bruising or purple discoloration of the skin near the puncture site is common. * You may shower only, no bathtub bathing for 5 days. Be careful to avoid slipping as your leg may feel stiff. * If a closure device was used on your femoral artery, please see the attached guide regarding care of the device and your leg. * Leave dressing on FOR 24 hours. CARE OF YOUR WRIST INCISION; * Bruising or purple discoloration of the skin near the puncture site is common. * You may shower. * DO NOT submerge wrist. * Leave dressing on FOR 24 hours. DENNIS CAMPOS MD Jun 04, 2022 13:07
[2022-06-04] MEDS ORDERED: SPIRONOLACTONE 25 MG (ALDACTONE) TAB PO SCH (17:00)
[2022-06-05] MEDS ORDERED: CLOPIDOGREL 75 MG (PLAVIX) TABLET PO SCH (09:00)
[2022-06-05] MEDS ORDERED: FUROSEMIDE 40 MG (LASIX) TAB PO SCH (09:00)
[2022-06-05] MEDS ORDERED: meTOproloL SUCCINATE 50 MG (TOPROL XL) TAB PO SCH (09:00)
[2022-06-05] MEDS ORDERED: EMPAGLIFLOZIN 10 MG TABLET (JARDIANCE) PO SCH (09:00)
[2022-06-05] MEDS ORDERED: LOSARTAN 25 MG (COZAAR) TAB PO SCH (09:00)
[2022-06-05] MEDS ORDERED: ASPIRIN E.C. 81 MG (ECOTRIN) TAB PO SCH (09:00)
[2022-06-05] MEDS ORDERED: FLUTICASONE NASAL SPRAY (FLONASE) 16 GM BTL NS SCH (09:00)
== END 2022-06-04 15:57 | disposition home or self-care (01) ==
LOC: CATH 09:00 → CSD 11:12 → CATH 15:57
PROVIDERS: ATTEND Internal Medicine Cardiovascular Disease
DX: I25.10 Atherosclerotic heart disease of native coronary artery without angina pectoris (principal); I25.82 Chronic total occlusion of coronary artery; I48.91 Unspecified atrial fibrillation; F17.290 Nicotine dependence, other tobacco product, uncomplicated; I48.19 Other persistent atrial fibrillation; E78.2 Mixed hyperlipidemia; I65.23 Occlusion and stenosis of bilateral carotid arteries; I11.0 Hypertensive heart disease with heart failure; I50.9 Heart failure, unspecified; G47.33 Obstructive sleep apnea (adult) (pediatric); M10.9 Gout, unspecified; E11.42 Type 2 diabetes mellitus with diabetic polyneuropathy; E66.9 Obesity, unspecified; Z68.26 Body mass index [BMI] 26.0-26.9, adult; Z79.01 Long term (current) use of anticoagulants; Z79.899 Other long term (current) drug therapy; Z79.84 Long term (current) use of oral hypoglycemic drugs
CPT/HCPCS: 71045; 80053; 80061; 85027; 85347; 85610; 85730; 87081; 93005; 93458; C1725 ×2; C1769 ×3; C1874 ×2; C1887 ×3; C1894; C9600; 36415

== ENCOUNTER → 2022-12-03 | Outpatient (CLI) | payer MEDICARE ==
[~2022-12-03] MED LIST changes: +ASPI-1238 PO; +CATHETER FLUSH 10 ML SYR IVP PRN; +CLOP75TA28 PO; -HEParin (CATH LAB) 2,000 ML IV ONE; -HEParin 1000 UNIT/ML (10ML VIAL) FOR BOLUS ONE; -LIDOCAINE 1% INJ 30 ML (XYLOCAINE) VIAL ONE; -MIDAZOLAM 5 MG/5 ML (VERSED) VIAL ONE; -NITRO DRIP 25000 MCG/D5W 250 ML IV ONE; -NS IV 1000 ML 1,000 ML IV SCH; -NS IV 1000 ML 1,000 ML ONE; +REGADENOSON 0.4 MG/5 ML SYR (LEXISCAN) IV ONE; -VERAPAMIL 5 MG/2 ML (CALAN) VIAL IV ONE; -fentaNYL INJ 100 MCG/2 ML AMP ONE
[2022-12-03 09:12] VITALS: BP 112/81
--- NOTE | 2022-12-03 13:15 | Cardiology Stress Test Report ---
Stress Test Report Date of Procedure/Referring: Date of Procedure: Dec 03, 2022 [facility] Admitting Physician Admitting Physician: Attending Physician: Dennis Campos MD Baseline Heart Rate: 83 Baseline Blood Pressure: Blood Pressure Systolic: 112 Blood Pressure Diastolic: 81 Baseline Vitals Vital Signs Date Time Temp Pulse Resp B/P (MAP) Pulse Ox O2 Delivery O2 Flow Rate FiO2 12/03/22 09:12 97 112/81 (91) Baseline EKG: Baseline EKG: NSR Summary After explaining the procedure to the patient, he signed a consent and then brought to the stress nuclear laboratory. Patient received 0.4 mg Lexiscan for stress test, ECG, heart rate and blood pressure were monitored continuously. Resting and stress dose of radio tracer were injected, imaging was acquired and reviewed in short axis, horizontal long axis and vertical long axis views. TID: 1.1 SSS: 4 SDS: 2 EF: 53 Patient tolerated Lexiscan well Baseline right bundle branch block persisted during test Diaphragmatic attenuation with mild reversible ischemia involving the mid to apical inferior lateral wall, could be secondary to the diaphragmatic attenuation Normal left ventricular size, ejection fraction 53% Copy Copies To 1: [facility]/ DENNIS CAMPOS MD Dec 03, 2022 13:15
== END ==
LOC: CARD 07:49
PROVIDERS: ATTEND Internal Medicine Cardiovascular Disease
DX: I25.10 Atherosclerotic heart disease of native coronary artery without angina pectoris (principal); I10 Essential (primary) hypertension
CPT/HCPCS: 78452; 93017; A9502